=== PATIENT | male | born 1950 | race Caucasian/White ===

== ENCOUNTER 2022-11-08 17:28 | Emergency (ER) | payer OTHER ==
[~2022-11-08] VITALS: Ht 177.8 cm; Wt 93.4 kg
--- NOTE | 2022-11-08 18:58 | ED GU-Male ---
General Chief Complaint: - Reproductive Stated Complaint: CATHETER PAIN - LEAKING Nursing Triage Note: PT AMB TO TRIAGE WITH COMPLAINT OF LOWER ABD PAIN, AND CATHETER HAS BEEN LEAKING. PT HAS HAD INDWELLING CATHETER FOR MONTHS. STATES RECENTLY HAD IT CHANGED. HAS BEEN ON 3 ROUNDS OF ANTIBIOTICS FOR UTI. Source: patient (LIMITED HISTORIAN), spouse History of Present Illness Date Seen by Provider: Nov 08, 2022 Time Seen by Provider: 18:40 Initial Comments PT ARRIVES VIA POV WITH PT HAS HAD INDWELLING MARISCAL CATHETER FOR THE LAST 6 MONTHS--PT STATES FOR PROSTATE PROBLEMS, DENIES HISTORY OF PROSTATE CANCER OR ANY PROSTATE SURGERY STATES HE HAS BEEN FIGHTING UTI'S FOR THE LAST 6 MONTHS, HAS BEEN TREATED 3 TIMES FOR UTI'S, LAST TIME WAS ABOUT 3 WEEKS AGO, WITH UNKNOWN ANTIBIOTIC. STATES CULTURES HAVE GROWN E.COLI. STATES HE IS FINE AT NIGHT, AND DOES NOT HAVE ANY PAIN AND CATHETER WORKS FINE AT NIGHT DURING THE DAY, HE HAS CONSTANT PAIN IN HIS GROIN/GENITAL AREA AND HAS CONSTANT BURNING, AND HAS URGENCY ALL THE TIME AND LEAKS URINE ALL THE TIME. THESE SYMPTOMS HAVE BEEN ONGOING FOR THE LAST 6 MONTHS. HE STATES THIS CURRENT CATHETER HAS BEEN IN PLACE FOR AT LEAST A MONTH HE HAS SEEN A UROLOGIST ONCE, ABOUT 5 MONTHS AGO HE STATES HE HAS NOT SEEN ANY DR. FOR SEVERAL MONTHS. PT AND JUST MOVED HERE 11/05/22 FROM [place], [place] HE HAS BEEN IN A "FACILITY" FOR THE LAST 5-6 MONTHS, AND MOVED HIM OUT ON AND MOVED HERE HE REPORTEDLY BROKE HIS LEG ( LEFT DISTAL FIBULA--NO SURGERY) , AND ALSO WAS HAVING HALLUCINATIONS FROM THE UTI AND THIS PROMPTED ADMIT TO A "FACILITY" HE HAD BEEN GETTING ALL MEDICAL CARE THROUGH [facility] IN [place], [place]. PT STATES HE HAS NOT MADE ANY PRIOR ARRANGEMENTS TO ESTABLISH WITH A LOCAL DRPadmini HERE OR WITH ANY [facility] IN THE AREA--PRIOR TO MOVING HERE LATER STATES THAT HE HAS AN APPOINTMENT WITH SOMEONE SOMEWHERE IN [place] ON November-NOT SURE WHAT KIND OF DRPadmini THE APPOINTMENT IS WITH. PCP: [facility] [place] Allergies and Home Medications Allergies Coded Allergies: ceftriaxone (Verified Allergy, Unknown, 11/08/22) codeine (Verified Allergy, Unknown, 11/08/22) Patient Home Medication List Home Medication List Reviewed: Yes Nitrofurantoin Monohyd/M-Cryst (Macrobid 100 mg Capsule) 100 Mg Capsule, 1 TAB PO BID Prescribed by: DESIRE CASTELLANOS on 11/08/222047 Phenazopyridine HCl (Pyridium) 200 Mg Tablet, 1 TAB PO TID Prescribed by: DESIRE CASTELLANOS on 11/08/222047 Tamsulosin HCl (Flomax) 0.4 Mg Cap, 0.4 MG PO DAILY Prescribed by: DESIRE CASTELLANOS on 11/08/222047 Review of Systems Review of Systems Constitutional: no symptoms reported; No fever Respiratory: no symptoms reported Cardiovascular: no symptoms reported Gastrointestinal: abdominal pain (PAIN OVER BLADDER) Genitourinary: see HPI Psychiatric/Neurological: Anxiety Past Viwoimw-Qkgwwe-Ypbtcs Hx Patient Social History Tobacco Use?: Yes (QUIT AGE 17) Smoking Status: Former Smoker Use of E-Cig and/or Vaping dev: No Substance use?: No Alcohol Use?: Yes (QUIT AGE 17) Pt feels they are or have been: No Seasonal Allergies Seasonal Allergies: Yes Past Medical History Surgeries: Yes Cardiac, Coronary Stent, Defibrillator, Orthopedic, Pacemaker Respiratory: Yes COPD Cardiac: Yes ([place] WITH STENT X 1; PACEMAKER/DEFIBRILLATOR; CHF) Atrial Fibrillation, Cardiomyopathy, Chronic Edema/Swelling, Coronary Artery Disease, Heart Attack, High Cholesterol, Hypertension Neurological: Yes Neuropathy, Parkinson's Disease Genitourinary: Yes (INDWELLING MARISCAL X 6 MONTHS, PER PT ON 11/08/22) Prostate Problems, UTI-Chronic Gastrointestinal: Yes Gastroesophageal Reflux, Liver Disease/Jaundice, Chronic Constipation Musculoskeletal: Yes (S/P BACK SURGERY;LEFT DISTAL FIBULA FX 2021--NO SURGERY) Arthritis, Chronic Back Pain, Fractures Endocrine: Yes (OBESITY) Diabetes, Non-Insulin dep HEENT: No Cancer: No Psychosocial: Yes Anxiety, Depression Integumentary: No Blood Disorders: No Family Medical History SOCIAL HISTORY: -SMOKED TEEN, QUIT AGE 17 -ETOH USE TEEN, QUIT AGE 17 -DENIES DRUG USE PAST SURGICAL HISTORY: -BACK SURGERY X 1 -CARDIAC CATH WITH STENT X 1 -PACEMAKER/DEFIBRILLATOR Physical Exam Vital Signs Vital Signs - First Documented 11/08/22 17:37 Temp 36.8 Pulse 70 Resp 16 B/P (MAP) 154/73 (100) Pulse Ox 96 O2 Delivery Room Air Capillary Refill : Less Than 3 Seconds Height, Weight, BMI Height: '" Weight: lbs. oz. kg; 29.00 BMI Method: General Appearance: WD/WN, no apparent distress, obese, other (ANXIOUS, CONSTANT MOVEMENTS OF BODY, AND ESPECIALLY OF FEET) Respiratory: normal breath sounds, no respiratory distress, no accessory muscle use Gastrointestinal: soft, tenderness (MILD SUPRAPUBIC TENDERNESS) Male: No erythema, No inguinal tenderness, No testicular tenderness; other (PENIS IS RETRACTED, BUT IS OTHERWISE NORMALIN APPEARANCE. MEATUS IS NORMAL. ) Extremities: non-tender, normal inspection, no pedal edema, no calf tenderness, normal capillary refill Neurologic/Psychiatric: no motor/sensory deficits, alert, oriented x 3, other (ANXIOUS.; RESTING TREMORS OF HANDS AND FEET. ) Skin: normal color, warm/dry; No rash Progress/Results/Core Measures Suspected Sepsis SIRS Temperature: Pulse: 70 Respiratory Rate: 16 Laboratory Tests 11/08/22 20:00: White Blood Count 13.3H Blood Pressure 154 /73 Mean: 100 Laboratory Tests 11/08/22 20:00: Creatinine 0.85, INR Comment 1.3, Platelet Count 295, Total Bilirubin 0.4 Results/Orders Lab Results Laboratory Tests Test 11/08/22 19:40 11/08/22 20:00 Range/Units Urine Color BROWN H Urine Clarity CLOUDY Urine pH 6.5 5-9 Urine Specific [place] >=1.030 1.016-1.022 Urine Protein 3+ H NEGATIVE Urine Glucose (UA) NEGATIVE NEGATIVE Urine Ketones TRACE H NEGATIVE Urine Nitrite POSITIVE H NEGATIVE Urine Bilirubin 2+ H NEGATIVE Urine Urobilinogen 2.0 < = 1.0 MG/DL Urine Leukocyte Esterase 2+ H NEGATIVE Urine RBC (Auto) 3+ H NEGATIVE Urine RBC TNTC H /HPF Urine WBC TNTC H /HPF Urine Squamous Epithelial Cells NONE /HPF Urine Crystals NONE /LPF Urine Bacteria LARGE H /HPF Urine Casts NONE /LPF Urine Mucus NEGATIVE /LPF Urine Culture Indicated YES White Blood Count 13.3 H 4.3-11.0 10^3/uL Red Blood Count 5.56 H 4.30-5.52 10^6/uL Hemoglobin 15.2 13.3-17.7 g/dL Hematocrit 48 40-54 % Mean Corpuscular Volume 86 80-99 fL Mean Corpuscular Hemoglobin 27 25-34 pg Mean Corpuscular Hemoglobin Concent 32 32-36 g/dL Red Cell Distribution Width 14.2 10.0-14.5 % Platelet Count 295 130-400 10^3/uL Mean Platelet Volume 9.2 9.0-12.2 fL Immature Granulocyte % (Auto) 0 % Neutrophils (%) (Auto) 67 42-75 % Lymphocytes (%) (Auto) 23 12-44 % Monocytes (%) (Auto) 8 0-12 % Eosinophils (%) (Auto) 1 0-10 % Basophils (%) (Auto) 1 0-10 % Neutrophils # (Auto) 8.9 H 1.8-7.8 10^3/uL Lymphocytes # (Auto) 3.1 1.0-4.0 10^3/uL Monocytes # (Auto) 1.1 H 0.0-1.0 10^3/uL Eosinophils # (Auto) 0.2 0.0-0.3 10^3/uL Basophils # (Auto) 0.1 0.0-0.1 10^3/uL Immature Granulocyte # (Auto) 0.1 0.0-0.1 10^3/uL Prothrombin Time 17.0 H 12.2-14.7 SEC INR Comment 1.3 0.8-1.4 Activated Partial Thromboplast Time 39 H 24-35 SEC Sodium Level 139 135-145 MMOL/L Potassium Level 4.6 3.6-5.0 MMOL/L Chloride Level 105 98-107 MMOL/L Carbon Dioxide Level 22 21-32 MMOL/L Anion Gap 12 5-14 MMOL/L Blood Urea Nitrogen 20 H 7-18 MG/DL Creatinine 0.85 0.60-1.30 MG/DL Estimat Glomerular Filtration Rate 91 BUN/Creatinine Ratio 24 Glucose Level 94 70-105 MG/DL Calcium Level 10.5 H 8.5-10.1 MG/DL Corrected Calcium 10.3 H 8.5-10.1 MG/DL Total Bilirubin 0.4 0.1-1.0 MG/DL Aspartate Amino Transf (AST/SGOT) 14 5-34 U/L Alanine Aminotransferase (ALT/SGPT) 8 0-55 U/L Alkaline Phosphatase 78 40-136 U/L B-Type Natriuretic Peptide 87.4 <100.0 PG/ML Total Protein 7.8 6.4-8.2 GM/DL Albumin 4.3 3.2-4.5 GM/DL Digoxin Level < 0.30 L 0.80-2.00 NG/ML My Orders Orders - DESIRE CASTELLANOS DO Ed Iv/Invasive Line Start (11/08/22 18:49) Catheter(Urinary) Insert & Ass 03,15 (11/08/22 18:49) Monitor-Rhythm Ecg Trace Only (11/08/22 18:49) Bnp [place] (11/08/22 18:49) Cbc With Automated Diff (11/08/22 18:49) Comprehensive Metabolic Panel (11/08/22 18:49) Protime With Inr (11/08/22 18:49) Partial Thromboplastin Time (11/08/22 18:49) Ua Culture If Indicated (11/08/22 18:49) Lidocaine 2% (Urojet) (Xylocaine Urojet) (11/08/22 19:00) Digoxin (11/08/22 18:51) Urine Culture (11/08/22 19:40) Nitrofurantoin Capsule,Macro (Macrobid C (11/08/22 21:00) Phenazopyridine Tablet (Pyridium Tablet) (11/08/22 21:00) Tamsulosin Capsule (Flomax Capsule) (11/08/22 21:00) Medications Given in ED Current Medications Medications Dose Ordered Sig/Esdras Route Start Time Stop Time Status Last Admin Dose Admin Lidocaine HCl 10 ml ONCE ONCE TOP 11/08/22 19:00 11/08/22 19:01 DC 11/08/22 19:30 10 ML Nitrofurantoin Macrocrystals 100 mg ONCE ONCE PO 11/08/22 21:00 11/08/22 21:01 DC 11/08/22 21:10 100 MG Phenazopyridine HCl 200 mg ONCE ONCE PO 11/08/22 21:00 11/08/22 21:01 DC 11/08/22 21:10 200 MG Vital Signs/I&O 11/08/22 11/08/22 17:37 21:10 Temp 36.8 36.8 Pulse 70 68 Resp 16 16 B/P (MAP) 154/73 (100) 169/91 Pulse Ox 96 97 O2 Delivery Room Air Room Air Capillary Refill : Less Than 3 Seconds Blood Pressure Mean: 100 Progress Note : Progress Note CURRENT MARISCAL CATHETER APPEARS TO BE DRAINING NORMALLY WITH VERY DARK, CLOUDY URINE, BUT PT IS HAVING SOME LEAKAGE AROUND IT CONSISTENT WITH URGE TO URINATE--? BLADDER SPASMS ? MARISCAL CATHETER REMOVED AND REPLACED, WITH RETURN OF VERY DARK, CLOUDY URINE. NO LEAKAGE NOTED. REVIEWED TEST RESULTS, NEED FOR FOLLOW UP AND RETURN PRECAUTIONS DISCUSSED WITH PT AND UNEVENTFUL ER STAY GIVEN MACROBID, FLOMAX AND PYRIDIUM HERE LIST OF LOCAL PHYSICIANS SENT HOME WITH PT. Departure Impression Primary Impression: UTI (urinary tract infection) Additional Impressions: Indwelling catheter replaced Chronic indwelling Mariscal catheter Disposition: HOME, SELF-CARE Condition: Stable Departure-Patient Inst. Decision time for Depature: 20:47 Referrals: NO,LOCAL PHYSICIAN (PCP/Family) Primary Care Physician Patient Instructions: How to Care for Your Mariscal Catheter, Male, Urinary Tract Infection, Adult (DC) Add. Discharge Instructions: CONTINUE YOUR REGULAR MEDICATIONS PRESCRIBED INCREASE YOUR FLUID INTAKE ESTABLISH WITH LOCAL DR OF CHOICE SOON POSSIBLE--CALL IN THE MORNING TO MAKE AN APPOINTMENT. LIST OF LOCAL DR'S SENT HOME WITH YOU. THERE ARE SEVERAL [facility] CLIN[facility] IN THE SURROUNDING AREA, AND YOU MAY ALSO ESTABLISH WITH ANY OF THEM, [facility]. All discharge instructions reviewed with patient and/or family. Voiced understanding. Scripts Tamsulosin HCl (Flomax) 0.4 Mg Cap 0.4 MG PO DAILY, #15 CAP Prov: DESIRE CASTELLANOS DO 11/08/22 Phenazopyridine HCl (Pyridium) 200 Mg Tablet 1 TAB PO TID, #15 TAB Prov: DESIRE CASTELLANOS DO 11/08/22 Nitrofurantoin Monohyd/M-Cryst (Macrobid 100 mg Capsule) 100 Mg Capsule 1 TAB PO BID, #20 CAP Prov: DESIRE CASTELLANOS DO 11/08/22 Work/School Note: Local Medical Staff Listing DESIRE CASTELLANOS DO Nov 08, 2022 18:58
[2022-11-08] MEDS ORDERED: LIDOCAINE UROJET 2% GEL 10 ML PKG TOP ONE (19:00)
[2022-11-08 19:53] LABS: BILIRUBIN,URINE 2+ (NEGATIVE); CLARITY,URINE CLOUDY; COLOR,URINE BROWN; GLUCOSE, URINE (UA) NEGATIVE (NEGATIVE); KETONES,URINE TRACE (NEGATIVE); LEUKOCYTE ESTERASE ,URINE 2+ (NEGATIVE); NITRITE,URINE POSITIVE (NEGATIVE); PH,URINE 6.5 (5-9); PROTEIN,URINE 3+ (NEGATIVE)
[2022-11-08 20:11] LABS: BASOPHILS # (AUTO) 0.1 10^3/uL (0.0-0.1); BASOPHILS % (AUTO) 1 % (0-10); EOSINOPHILS # (AUTO) 0.2 10^3/uL (0.0-0.3); EOSINOPHILS % (AUTO) 1 % (0-10); HEMATOCRIT 48 % (40-54); HEMOGLOBIN 15.2 g/dL (13.3-17.7); LYMPHOCYTES # (AUTO) 3.1 10^3/uL (1.0-4.0); LYMPHOCYTES % (AUTO) 23 % (12-44); MEAN CORPUSCULAR HEMOGLOBIN 27 pg (25-34); MEAN CORPUSCULAR HGB CONC 32 g/dL (32-36); MEAN CORPUSCULAR VOLUME 86 fL (80-99); MEAN PLATELET VOLUME 9.2 fL (9.0-12.2); MONOCYTES # (AUTO) 1.1 10^3/uL (0.0-1.0); MONOCYTES % (AUTO) 8 % (0-12); NEUTROPHILS # (AUTO) 8.9 10^3/uL (1.8-7.8); NEUTROPHILS % (AUTO) 67 % (42-75); PLATELET COUNT 295 10^3/uL (130-400); WHITE BLOOD COUNT 13.3 10^3/uL (4.3-11.0)
[2022-11-08 20:25] LABS: BACTERIA,URINE LARGE /HPF; RBC,URINE TNTC /HPF; WBC,URINE TNTC /HPF
[2022-11-08 20:40] LABS: ALANINE AMINOTRANSFERASE 8 U/L (0-55); ALBUMIN 4.3 GM/DL (3.2-4.5); ALKALINE PHOSPHATASE 78 U/L (40-136); BILIRUBIN,TOTAL 0.4 MG/DL (0.1-1.0); BUN/CREATININE RATIO 24; CALCIUM 10.5 MG/DL (8.5-10.1); CARBON DIOXIDE 22 MMOL/L (21-32); CHLORIDE 105 MMOL/L (98-107); CREATININE SERUM 0.85 MG/DL (0.60-1.30); GFR ESTIMATED 91; GLUCOSE 94 MG/DL (70-105); POTASSIUM 4.6 MMOL/L (3.6-5.0); SODIUM 139 MMOL/L (135-145); TOTAL PROTEIN 7.8 GM/DL (6.4-8.2)
[2022-11-08 20:46] LABS: INR 1.3 (0.8-1.4)
[2022-11-08] MEDS ORDERED: PHEN-640 PO (20:48)
[2022-11-08] MEDS ORDERED: NITR-65 PO (20:48)
[2022-11-08] MEDS ORDERED: TMSL.4C PO (20:48)
[2022-11-08] MEDS ORDERED: TAMSULOSIN 0.4 MG (FLOMAX) CAP PO SCH (21:00)
[2022-11-08] MEDS ORDERED: NITROFURANTOIN 100 MG (MACROBID) CAPSULE PO ONE (21:00)
[2022-11-08] MEDS ORDERED: PHENAZOPYRIDINE 100 MG (PYRIDIUM) TABLET PO ONE (21:00)
[2022-11-08 21:10] VITALS: BP 169/91
== END 2022-11-08 21:14 | disposition home or self-care (01) ==
LOC: ER 17:31
DX: N39.0 Urinary tract infection, site not specified (principal); T83.038A Leakage of other urinary catheter, initial encounter; E66.9 Obesity, unspecified; Z87.891 Personal history of nicotine dependence; Z68.29 Body mass index [BMI] 29.0-29.9, adult; Z88.1 Allergy status to other antibiotic agents
CPT/HCPCS: 36415; 51702; 80053; 80162; 81000; 83880; 85025; 85610; 85730; 87077; 87088; 87186; 93041

== ENCOUNTER 2022-12-24 11:09 | Emergency (ER) | payer OTHER ==
[~2022-12-24] VITALS: Ht 177.8 cm; Wt 100.2 kg
[~2022-12-24 11:09] MED LIST: NITR-65 PO; PHEN-640 PO; TMSL.4C PO
--- NOTE | 2022-12-24 11:43 | ED GU-Male ---
General Stated Complaint: UTI, CONFUSION Source: patient, family Exam Limitations: no limitations History of Present Illness Date Seen by Provider: Dec 24, 2022 Time Seen by Provider: 11:31 Initial Comments 72-year-old male presents with concerns for UTI. He has a chronic Mariscal catheter due to urinary retention. Family states that whenever he gets UTI he has a lot of head movement, confusion, and he blurts things out randomly. He denies abdominal pain, but he is tender to palpation in the lower quadrants. Denies fevers, chest pain, nausea, and vomiting. Family states he has a home health nurse who comes and flushes his catheter twice a week. He is also complaining of a sore throat. Reports cough, states it could be related to his COPD. Reports some shortness of air, but states this is normal. Allergies and Home Medications Allergies Coded Allergies: ceftriaxone (Verified Allergy, Unknown, 11/08/22) codeine (Verified Allergy, Unknown, 11/08/22) Patient Home Medication List Home Medication List Reviewed: Yes Nitrofurantoin Macrocrystal (Nitrofurantoin) 100 Mg Capsule, 100 MG PO BID Prescribed by: Martha Vo on 12/24/22 1257 Nitrofurantoin Monohyd/M-Cryst (Macrobid 100 mg Capsule) 100 Mg Capsule, 1 TAB PO BID Prescribed by: DESIRE CASTELLANOS on 11/08/222047 Phenazopyridine HCl (Pyridium) 200 Mg Tablet, 1 TAB PO TID Prescribed by: DESIRE CASTELLANOS on 11/08/222047 Tamsulosin HCl (Flomax) 0.4 Mg Cap, 0.4 MG PO DAILY Prescribed by: DESIRE CASTELLANOS on 11/08/222047 Review of Systems Review of Systems Constitutional: see HPI Past Jjuaioi-Ylmefg-Gbpxly Hx Seasonal Allergies Seasonal Allergies: Yes Past Medical History Surgeries: Yes Cardiac, Coronary Stent, Defibrillator, Orthopedic, Pacemaker Respiratory: Yes COPD Cardiac: Yes ([place] WITH STENT X 1; PACEMAKER/DEFIBRILLATOR; CHF) Atrial Fibrillation, Cardiomyopathy, Chronic Edema/Swelling, Coronary Artery Disease, Heart Attack, High Cholesterol, Hypertension Neurological: Yes Neuropathy, Parkinson's Disease Genitourinary: Yes (INDWELLING MARISCAL X 6 MONTHS, PER PT ON 11/08/22) Prostate Problems, UTI-Chronic Gastrointestinal: Yes Gastroesophageal Reflux, Liver Disease/Jaundice, Chronic Constipation Musculoskeletal: Yes (S/P BACK SURGERY;LEFT DISTAL FIBULA FX 2021--NO SURGERY) Arthritis, Chronic Back Pain, Fractures Endocrine: Yes (OBESITY) Diabetes, Non-Insulin dep HEENT: No Cancer: No Psychosocial: Yes Anxiety, Depression Integumentary: No Blood Disorders: No Family Medical History SOCIAL HISTORY: -SMOKED TEEN, QUIT AGE 17 -ETOH USE TEEN, QUIT AGE 17 -DENIES DRUG USE PAST SURGICAL HISTORY: -BACK SURGERY X 1 -CARDIAC CATH WITH STENT X 1 -PACEMAKER/DEFIBRILLATOR Physical Exam Vital Signs Vital Signs - First Documented 12/24/22 11:15 Temp 36.2 Pulse 70 Resp 17 B/P (MAP) 136/50 (78) O2 Delivery Room Air Capillary Refill : Height, Weight, BMI Height: '" Weight: lbs. oz. kg; 29.00 BMI Method: General Appearance: WD/WN, no apparent distress HEENT: pharynx normal; No pharyngeal erythema, No tonsillar exudate Neck: supple, normal inspection Cardiovascular: regular rate, rhythm, no edema, no gallop, no JVD, no murmur Respiratory: lungs clear, normal breath sounds, no respiratory distress, no accessory muscle use Gastrointestinal: normal bowel sounds, soft, tenderness (Bilateral lower quadrants) Back: normal inspection Extremities: normal range of motion, normal inspection Neurologic/Psychiatric: alert, normal mood/affect Skin: normal color, warm/dry Progress/Results/Core Measures Suspected Sepsis SIRS Temperature: Pulse: Respiratory Rate: Laboratory Tests 12/24/22 11:35: White Blood Count 11.0 Blood Pressure / Mean: Laboratory Tests 12/24/22 11:35: Creatinine 0.77, Platelet Count 271, Total Bilirubin 0.8 Results/Orders Lab Results Laboratory Tests Test 12/24/22 11:35 12/24/22 11:51 Range/Units White Blood Count 11.0 4.3-11.0 10^3/uL Red Blood Count 5.01 4.30-5.52 10^6/uL Hemoglobin 13.2 L 13.3-17.7 g/dL Hematocrit 42 40-54 % Mean Corpuscular Volume 84 80-99 fL Mean Corpuscular Hemoglobin 26 25-34 pg Mean Corpuscular Hemoglobin Concent 31 L 32-36 g/dL Red Cell Distribution Width 15.8 H 10.0-14.5 % Platelet Count 271 130-400 10^3/uL Mean Platelet Volume 9.4 9.0-12.2 fL Immature Granulocyte % (Auto) 0 % Neutrophils (%) (Auto) 78 H 42-75 % Lymphocytes (%) (Auto) 11 L 12-44 % Monocytes (%) (Auto) 9 0-12 % Eosinophils (%) (Auto) 1 0-10 % Basophils (%) (Auto) 1 0-10 % Neutrophils # (Auto) 8.5 H 1.8-7.8 10^3/uL Lymphocytes # (Auto) 1.2 1.0-4.0 10^3/uL Monocytes # (Auto) 1.0 0.0-1.0 10^3/uL Eosinophils # (Auto) 0.1 0.0-0.3 10^3/uL Basophils # (Auto) 0.1 0.0-0.1 10^3/uL Immature Granulocyte # (Auto) 0.0 0.0-0.1 10^3/uL Urine Color MICHAEL H Urine Clarity CLOUDY Urine pH 6.0 5-9 Urine Specific [place] 1.015 L 1.016-1.022 Urine Protein 2+ H NEGATIVE Urine Glucose (UA) TRACE H NEGATIVE Urine Ketones TRACE H NEGATIVE Urine Nitrite NEGATIVE NEGATIVE Urine Bilirubin NEGATIVE NEGATIVE Urine Urobilinogen 1.0 < = 1.0 MG/DL Urine Leukocyte Esterase 3+ H NEGATIVE Urine RBC (Auto) 3+ H NEGATIVE Urine RBC >100 H /HPF Urine WBC 50-100 H /HPF Urine Crystals NONE /LPF Urine Bacteria MODERATE H /HPF Urine Casts NONE /LPF Urine Mucus NEGATIVE /LPF Urine Culture Indicated YES Sodium Level 139 135-145 MMOL/L Potassium Level 3.9 3.6-5.0 MMOL/L Chloride Level 103 98-107 MMOL/L Carbon Dioxide Level 22 21-32 MMOL/L Anion Gap 14 5-14 MMOL/L Blood Urea Nitrogen 12 7-18 MG/DL Creatinine 0.77 0.60-1.30 MG/DL Estimat Glomerular Filtration Rate 94 BUN/Creatinine Ratio 16 Glucose Level 120 H 70-105 MG/DL Calcium Level 9.6 8.5-10.1 MG/DL Corrected Calcium 9.7 8.5-10.1 MG/DL Total Bilirubin 0.8 0.1-1.0 MG/DL Aspartate Amino Transf (AST/SGOT) 12 5-34 U/L Alanine Aminotransferase (ALT/SGPT) < 6 0-55 U/L Alkaline Phosphatase 68 40-136 U/L Total Protein 7.0 6.4-8.2 GM/DL Albumin 3.9 3.2-4.5 GM/DL Influenza Type A (RT-PCR) Not Detected Not Detecte Influenza Type B (RT-PCR) Not Detected Not Detecte SARS-CoV-2 RNA (RT-PCR) Not Detected Not Detecte Group A Streptococcus Screen NEGATIVE NEGATIVE My Orders Orders - MARTHA VO APRN Ua Culture If Indicated (12/24/22 11:30) Cbc With Automated Diff (12/24/22 11:37) Comprehensive Metabolic Panel (12/24/22 11:37) Chest 1 View, Ap/Pa Only (12/24/22 11:43) Covid 19 Inhouse Test (12/24/22 11:44) Influenza A And B By Pcr (12/24/22 11:44) Rapid Strep A Screen (12/24/22 11:44) Urine Culture (12/24/22 11:35) Nitrofurantoin Capsule,Macro (Macrobid C (12/24/22 12:45) Medications Given in ED Current Medications Medications Dose Ordered Sig/Esdras Route Start Time Stop Time Status Last Admin Dose Admin Nitrofurantoin Macrocrystals 100 mg ONCE ONCE PO 12/24/22 12:45 12/24/22 12:46 DC 12/24/22 13:12 100 MG Vital Signs/I&O 12/24/22 11:15 Temp 36.2 Pulse 70 Resp 17 B/P (MAP) 136/50 (78) O2 Delivery Room Air Capillary Refill : Progress Note #1: Time: 11:42 Progress Note Patient seen and evaluated, resting comfortably in bed, no acute distress. Based on exam and symptoms, concern for UTI, COVID/flu, COPD, strep throat. Work-up initially included CBC, CMP, UA with culture, COVID and flu swabs, strep swab, and chest x-ray. Progress Note #2: Time: 12:47 Progress Note Labs reviewed. CBC shows normal WBC 11.0, slightly decreased hemoglobin 13.2, slightly increased neutrophil % 78. CMP grossly normal, glucose slightly elevated at 120, kidney function normal, creatinine 0.77, GFR 95, BUN 12. UA shows 2+ protein, trace glucose, trace ketones, 3+ leukocytes, 3+ RBC, 50-100 WBC, moderate bacteria. Previously was susceptible to Macrobid, will prescribe Macrobid, patient has normal kidney function. Waiting for chest x-ray result. Progress Note #3: Time: 12:55 Progress Note Chest x-ray reviewed, no acute cardiopulmonary processes. Results discussed with patient and family. Will discharge with oral antibiotic. Patient and family agree with discharge plan. Discharge instructions return precautions provided. asked if he could be placed on long-term antibiotics that he takes daily to prevent infections. and patient instructed to follow-up with primary care provider regarding this. Departure Impression Primary Impression: Urinary tract infection Disposition: 01 HOME, SELF-CARE Condition: Stable Departure-Patient Inst. Referrals: NO,LOCAL PHYSICIAN (PCP/Family) Primary Care Physician Patient Instructions: Urinary Tract Infection, Adult (DC) Add. Discharge Instructions: Complete full course of antibiotic, even if you begin to feel better. Return for fevers greater than 100.4, worsening pain, vomiting, lower back/flank pain, inability to urinate, or any other new, concerning, or worsening symptoms. Follow-up with primary care provider. Scripts Nitrofurantoin Macrocrystal (Nitrofurantoin) 100 Mg Capsule 100 MG PO BID for 10 Days, #20 CAP 0 Refills Prov: MARTHA VO APRN 12/24/22 MARTHA VO APRN Dec 24, 2022 11:43
[2022-12-24 11:52] LABS: BASOPHILS # (AUTO) 0.1 10^3/uL (0.0-0.1); BASOPHILS % (AUTO) 1 % (0-10); EOSINOPHILS # (AUTO) 0.1 10^3/uL (0.0-0.3); EOSINOPHILS % (AUTO) 1 % (0-10); HEMATOCRIT 42 % (40-54); HEMOGLOBIN 13.2 g/dL (13.3-17.7); LYMPHOCYTES # (AUTO) 1.2 10^3/uL (1.0-4.0); LYMPHOCYTES % (AUTO) 11 % (12-44); MEAN CORPUSCULAR HEMOGLOBIN 26 pg (25-34); MEAN CORPUSCULAR HGB CONC 31 g/dL (32-36); MEAN CORPUSCULAR VOLUME 84 fL (80-99); MEAN PLATELET VOLUME 9.4 fL (9.0-12.2); MONOCYTES % (AUTO) 9 % (0-12); NEUTROPHILS # (AUTO) 8.5 10^3/uL (1.8-7.8); NEUTROPHILS % (AUTO) 78 % (42-75); PLATELET COUNT 271 10^3/uL (130-400)
[2022-12-24 11:53] LABS: BILIRUBIN,URINE NEGATIVE (NEGATIVE); CLARITY,URINE CLOUDY; COLOR,URINE AMBER; GLUCOSE, URINE (UA) TRACE (NEGATIVE); KETONES,URINE TRACE (NEGATIVE); LEUKOCYTE ESTERASE ,URINE 3+ (NEGATIVE); NITRITE,URINE NEGATIVE (NEGATIVE); PROTEIN,URINE 2+ (NEGATIVE)
[2022-12-24 12:00] LABS: BACTERIA,URINE MODERATE /HPF; RBC,URINE >100 /HPF; WBC,URINE 50-100 /HPF
[2022-12-24 12:02] LABS: ALBUMIN 3.9 GM/DL (3.2-4.5); CHLORIDE 103 MMOL/L (98-107); POTASSIUM 3.9 MMOL/L (3.6-5.0); SODIUM 139 MMOL/L (135-145)
[2022-12-24 12:03] LABS: CALCIUM 9.6 MG/DL (8.5-10.1)
[2022-12-24 12:04] LABS: GLUCOSE 120 MG/DL (70-105)
[2022-12-24 12:05] LABS: CARBON DIOXIDE 22 MMOL/L (21-32)
[2022-12-24 12:06] LABS: BILIRUBIN,TOTAL 0.8 MG/DL (0.1-1.0)
[2022-12-24 12:07] LABS: ALKALINE PHOSPHATASE 68 U/L (40-136)
[2022-12-24 12:08] LABS: CREATININE SERUM 0.77 MG/DL (0.60-1.30); GFR ESTIMATED 94
[2022-12-24 12:09] LABS: BUN/CREATININE RATIO 16
[2022-12-24 12:11] LABS: ALANINE AMINOTRANSFERASE < 6 U/L (0-55)
[2022-12-24] MEDS ORDERED: NITROFURANTOIN 100 MG (MACROBID) CAPSULE PO ONE (12:45)
[2022-12-24] MEDS ORDERED: NITR100C PO (12:57)
[2022-12-24 13:13] VITALS: BP 126/70
--- NOTE | 2022-12-25 13:57 | Diagnostic Imaging Report ---
EXAMINATION: Chest radiograph TECHNIQUE: Portable upright view of the chest obtained. HISTORY: cough COMPARISON: None available. FINDINGS: Low lung volume. No airspace opacity. Left pectoral AICD. Cardiac silhouette and pulmonary vascularity are within normal limits. No airspace consolidation. No pleural effusion or pneumothorax. No acute osseous abnormality. IMPRESSION: No acute chest findings. Dictated by: Dictated on workstation # [id number]
== END 2022-12-24 13:13 | disposition home or self-care (01) ==
LOC: EDUNIT# 11:09 → ER 11:11
DX: N39.0 Urinary tract infection, site not specified (principal); J44.9 Chronic obstructive pulmonary disease, unspecified; E66.9 Obesity, unspecified; Z87.891 Personal history of nicotine dependence; Z68.29 Body mass index [BMI] 29.0-29.9, adult; Z20.822 Contact with and (suspected) exposure to COVID-19; Z88.1 Allergy status to other antibiotic agents
CPT/HCPCS: 36415; 71045; 80053; 81000; 85025; 87077; 87088; 87186; 87430; 87636

== ENCOUNTER 2022-12-29 16:01 | Emergency (ER) | payer OTHER ==
[~2022-12-29] VITALS: Ht 177.8 cm; Wt 100.0 kg
[~2022-12-29 16:01] MED LIST changes: +NITR100C PO
[2022-12-29 17:08] LABS: CLARITY,URINE TURBID; COLOR,URINE RED; GLUCOSE, URINE (UA) 2+ (NEGATIVE); KETONES,URINE 1+ (NEGATIVE); LEUKOCYTE ESTERASE ,URINE 2+ (NEGATIVE); NITRITE,URINE POSITIVE (NEGATIVE); PH,URINE 6.5 (5-9); PROTEIN,URINE 3+ (NEGATIVE)
[2022-12-29 17:23] LABS: BACTERIA,URINE LARGE /HPF; RBC,URINE TNTC /HPF
[2022-12-29 17:29] LABS: BILIRUBIN,URINE 3+ (NEGATIVE)
--- NOTE | 2022-12-29 17:47 | ED GU-Male ---
General Chief Complaint: - Reproductive Stated Complaint: BLOOD IN URINE Nursing Triage Note: PT TO ROOM VIA W/C WITH C/O BLOOD IN URINE AND BURNING FEEL IN BLADDER SINCE THIS MORNING. PT HAS INDWELLING CATHETHER IN PLACE. PT REPORTS CHRONIC UTIS. Source: patient, old records Exam Limitations: no limitations History of Present Illness Date Seen by Provider: Dec 29, 2022 Time Seen by Provider: 16:02 Initial Comments This 72-year-old gentleman presents to the emergency room with complaints of suprapubic discomfort and gross hematuria noted in his Mariscal catheter tubing and bag. He was seen a couple days ago in this emergency room and diagnosed with urinary tract infection. Catheter was not replaced at that time and has been in place for at least 3 weeks. He has history of recurrent bladder infections. Culture was obtained on his last visit and was reviewed. Based on culture results, Bactrim is being added to his treatment. He is on anticoagulant for history of atrial fibrillation. He has a Mariscal catheter placed for urinary retention. He is seeing a urologist through the [facility]. Allergies and Home Medications Allergies Coded Allergies: ceftriaxone (Verified Allergy, Unknown, 11/08/22) codeine (Verified Allergy, Unknown, 11/08/22) Patient Home Medication List Home Medication List Reviewed: Yes Nitrofurantoin Macrocrystal (Nitrofurantoin) 100 Mg Capsule, 100 MG PO BID Prescribed by: Martha Goldberg on 12/24/22 1257 Nitrofurantoin Monohyd/M-Cryst (Macrobid 100 mg Capsule) 100 Mg Capsule, 1 TAB PO BID Prescribed by: DESIRE CASTELLANOS on 11/08/222047 Phenazopyridine HCl (Pyridium) 200 Mg Tablet, 1 TAB PO TID Prescribed by: DESIRE CASTELLANOS on 11/08/222047 Sulfamethoxazole/Trimethoprim (Bactrim Ds Tablet) 1 Each Tablet, 1 EACH PO BID Prescribed by: LEILANI SALVADOR on 12/29/221748 Tamsulosin HCl (Flomax) 0.4 Mg Cap, 0.4 MG PO DAILY Prescribed by: DESIRE CASTELLANOS on 11/08/222047 Review of Systems Review of Systems Constitutional: no symptoms reported EENTM: no symptoms reported Respiratory: no symptoms reported Cardiovascular: see HPI Gastrointestinal: see HPI Genitourinary: see HPI Musculoskeletal: no symptoms reported Skin: no symptoms reported Psychiatric/Neurological: No Symptoms Reported Endocrine: No Symptoms Reported Hematologic/Lymphatic: See HPI Past Rzvwque-Slsdxe-Juoxwh Hx Patient Social History Tobacco Use?: No Smoking Status: Never a Smoker Smokeless Tobacco Frequency: Never a User Use of E-Cig and/or Vaping dev: No Use of E-Cig and/or Vaping [place]: Never a User Substance use?: No Alcohol Use?: No Pt feels they are or have been: No Seasonal Allergies Seasonal Allergies: Yes Past Medical History Surgeries: Yes Cardiac, Coronary Stent, Defibrillator, Orthopedic, Pacemaker Respiratory: Yes COPD Cardiac: Yes ([place] WITH STENT X 1; PACEMAKER/DEFIBRILLATOR; CHF) Atrial Fibrillation, Cardiomyopathy, Chronic Edema/Swelling, Coronary Artery Disease, Heart Attack, High Cholesterol, Hypertension Neurological: Yes Neuropathy, Parkinson's Disease Genitourinary: Yes (INDWELLING MARISCAL X 6 MONTHS, PER PT ON 11/08/22) Prostate Problems, UTI-Chronic Gastrointestinal: Yes Gastroesophageal Reflux, Liver Disease/Jaundice, Chronic Constipation Musculoskeletal: Yes (S/P BACK SURGERY;LEFT DISTAL FIBULA FX 2021--NO SURGERY) Arthritis, Chronic Back Pain, Fractures Endocrine: Yes (OBESITY) Diabetes, Non-Insulin dep HEENT: No Cancer: No Psychosocial: Yes Anxiety, Depression Integumentary: No Blood Disorders: No Family Medical History SOCIAL HISTORY: -SMOKED TEEN, QUIT AGE 17 -ETOH USE TEEN, QUIT AGE 17 -DENIES DRUG USE PAST SURGICAL HISTORY: -BACK SURGERY X 1 -CARDIAC CATH WITH STENT X 1 -PACEMAKER/DEFIBRILLATOR Physical Exam Vital Signs Vital Signs - First Documented 12/29/22 12/29/22 16:05 18:31 Temp 36.4 Pulse 67 Resp 16 B/P (MAP) 149/94 (112) Pulse Ox 97 O2 Delivery Room Air Capillary Refill : Less Than 3 Seconds Height, Weight, BMI Height: '" Weight: lbs. oz. kg; 31.00 BMI Method: General Appearance: WD/WN, no apparent distress HEENT: normal ENT inspection Neck: normal inspection Cardiovascular: regular rate, rhythm, no murmur Respiratory: lungs clear, normal breath sounds, no respiratory distress Gastrointestinal: soft, tenderness (Suprapubic) Neurologic/Psychiatric: alert, normal mood/affect, oriented x 3 Skin: normal color, warm/dry Progress/Results/Core Measures Suspected Sepsis SIRS Temperature: Pulse: 67 Respiratory Rate: 16 Blood Pressure 149 /94 Mean: 112 Results/Orders Lab Results Laboratory Tests Test 12/29/22 16:41 Range/Units Urine Color RED H Urine Clarity TURBID Urine pH 6.5 5-9 Urine Specific [place] 1.020 1.016-1.022 Urine Protein 3+ H NEGATIVE Urine Glucose (UA) 2+ H NEGATIVE Urine Ketones 1+ H NEGATIVE Urine Nitrite POSITIVE H NEGATIVE Urine Bilirubin 3+ H NEGATIVE Urine Urobilinogen 4.0 < = 1.0 MG/DL Urine Leukocyte Esterase 2+ H NEGATIVE Urine RBC (Auto) 3+ H NEGATIVE Urine RBC TNTC H /HPF Urine WBC 10-25 H /HPF Urine Squamous Epithelial Cells NONE /HPF Urine Crystals NONE /LPF Urine Bacteria LARGE H /HPF Urine Casts NONE /LPF Urine Mucus NEGATIVE /LPF Urine Other /HPF Urine Culture Indicated YES Micro Results Microbiology 12/29/22 Urine Culture - Final, Complete Lactobacillus species Gram Negative Gildardo My Orders Orders - LEILANI REY MD Ua Culture If Indicated (12/29/22 16:02) Urine Culture (12/29/22 16:41) Sulfamethoxazole/Trimet Ds Tab (Bactrim (12/29/22 18:00) Mariscal Cath (12/29/22 17:56) Vital Signs/I&O 12/29/22 12/29/22 16:05 18:31 Temp 36.4 36.3 Pulse 67 69 Resp 16 15 B/P (MAP) 149/94 (112) 146/84 Pulse Ox 97 O2 Delivery Room Air Room Air Capillary Refill : Less Than 3 Seconds Blood Pressure Mean: 112 Progress Note : Progress Note Mariscal catheter was replaced. Patient was started on Bactrim DS based on review of culture results. He was advised to skip his next 2 doses of Eliquis due to the significant active bleeding with gross hematuria. See discharge instructions for further discussion. Departure Impression Primary Impression: UTI (urinary tract infection) Qualified Codes: N39.0 - Urinary tract infection, site not specified; R31.9 - Hematuria, unspecified Additional Impressions: Chronic indwelling Mariscal catheter Anticoagulated Disposition: 01 HOME, SELF-CARE Condition: Improved Departure-Patient Inst. Decision time for Depature: 17:49 Referrals: NO,LOCAL PHYSICIAN (PCP/Family) Primary Care Physician Patient Instructions: How to Care for Your Mariscal Catheter, Male, Urinary Tract Infection, Adult ED Add. Discharge Instructions: Because of your significant bleeding, skip the next 2 doses of Eliquis. Resume Eliquis tomorrow night. Follow-up with your urologist as soon as possible. Please call Sunday morning for further instructions. Complete to the nitrofurantoin antibiotic you were recently prescribed as well as the Bactrim DS you were prescribed from the ER tonight. Follow-up with your primary care provider soon as possible as well. Please drink plenty of clear liquids to help flush the urine through your urinary tract. Empty your catheter often. Try to keep your catheter bag below the level of your bladder. Return to the ER if you have worsening symptoms despite following these instructions. All discharge instructions reviewed with patient and/or family. Voiced understanding. Scripts Sulfamethoxazole/Trimethoprim (Bactrim Ds Tablet) 1 Each Tablet 1 EACH PO BID, #14 TAB Prov: LEILANI REY MD 12/29/22 LEILANI REY MD Dec 29, 2022 17:47
[2022-12-29] MEDS ORDERED: SULF1TAB38 PO (17:49)
[2022-12-29] MEDS ORDERED: TRIM/SULFAMETH 160/800 (SEPTRA DS) TAB PO ONE (18:00)
[2022-12-29 18:31] VITALS: BP 146/84
== END 2022-12-29 18:31 | disposition home or self-care (01) ==
LOC: EDUNIT# 16:01 → ER 16:02
DX: N39.0 Urinary tract infection, site not specified (principal); R31.0 Gross hematuria; Z96.0 Presence of urogenital implants; Z79.01 Long term (current) use of anticoagulants; Z87.891 Personal history of nicotine dependence; Z88.2 Allergy status to sulfonamides
CPT/HCPCS: 51702; 81000; 87088

== ENCOUNTER 2023-02-26 14:13 | Emergency (ER) | payer OTHER ==
[~2023-02-26] VITALS: Ht 177 cm; Wt 104.3 kg
[~2023-02-26 14:13] MED LIST changes: +SULF1TAB38 PO
--- NOTE | 2023-02-26 14:38 | ED GU-Female ---
General Chief Complaint: - Reproductive Stated Complaint: UTI| PAIN Source: patient Exam Limitations: no limitations History of Present Illness Date Seen by Provider: Feb 26, 2023 Time Seen by Provider: 14:36 Initial Comments Patient is a 72-year-old male with a history of BPH who presents ED with burning with his urination. States over the past 9 months he has had on and off urinary tract infections treated with Bactrim. He states he had some increased burning with urination with increased pressure over the past few days. States he has been producing a lot of urine. Does have a indwelling catheter recently switched out 1 week ago. Reports burning sensation down into his testicle. Denies any testicle pain or testicle swelling at this time. Denies fever, chills, back pain, abdominal distention, chest pain, shortness of breath, cough, nausea vomiting, diarrhea. Follows up with urology Dr. Wallace in [place]. Allergies and Home Medications Allergies Coded Allergies: ceftriaxone (Verified Allergy, Unknown, 11/08/22) codeine (Verified Allergy, Unknown, 11/08/22) Patient Home Medication List Home Medication List Reviewed: Yes Nitrofurantoin Macrocrystal (Nitrofurantoin) 100 Mg Capsule, 100 MG PO BID Prescribed by: Marhta Goldberg on 12/24/22 1257 Nitrofurantoin Monohyd/M-Cryst (Macrobid 100 mg Capsule) 100 Mg Capsule, 1 TAB PO BID Prescribed by: DESIRE CASTELLANOS on 11/08/222047 Phenazopyridine HCl (Pyridium) 200 Mg Tablet, 1 TAB PO TID Prescribed by: DESIRE CASTELLANOS on 11/08/222047 Sulfamethoxazole/Trimethoprim (Bactrim Ds Tablet) 1 Each Tablet, 1 EACH PO BID Prescribed by: LEILANI SALVADOR on 12/29/22 1749 Sulfamethoxazole/Trimethoprim (Bactrim Ds Tablet) 1 Each Tablet, 1 EACH PO BID Prescribed by: KYE SHAFER on 02/26/23 153 Tamsulosin HCl (Flomax) 0.4 Mg Cap, 0.4 MG PO DAILY Prescribed by: DESIRE CASTELLANOS on 11/08/222047 Review of Systems Review of Systems Constitutional: No chills, No diaphoresis, No malaise, No weakness EENTM: No ear pain, No blurred vision, No double vision, No hoarseness, No mouth pain, No mouth swelling Respiratory: No cough, No dyspnea on exertion Cardiovascular: No chest pain Gastrointestinal: No abdominal pain, No diarrhea, No nausea, No vomiting Genitourinary: burning, discharge, dysuria, frequency Musculoskeletal: No back pain, No gout Skin: No change in color, No change in hair/nails All Other Systemes Reviewed Negative Unless Noted: Yes Past Oucknfi-Uzgtuo-Ztncjl Hx Seasonal Allergies Seasonal Allergies: Yes Past Medical History Surgeries: Yes Cardiac, Coronary Stent, Defibrillator, Orthopedic, Pacemaker Respiratory: Yes COPD Cardiac: Yes (ME WITH STENT X 1; PACEMAKER/DEFIBRILLATOR; CHF) Atrial Fibrillation, Cardiomyopathy, Chronic Edema/Swelling, Coronary Artery Disease, Heart Attack, High Cholesterol, Hypertension Neurological: Yes Neuropathy, Parkinson's Disease Genitourinary: Yes (INDWELLING MARISCAL X 6 MONTHS, PER PT ON 11/08/22) Prostate Problems, UTI-Chronic Gastrointestinal: Yes Gastroesophageal Reflux, Liver Disease/Jaundice, Chronic Constipation Musculoskeletal: Yes (S/P BACK SURGERY;LEFT DISTAL FIBULA FX 2021--NO SURGERY) Arthritis, Chronic Back Pain, Fractures Endocrine: Yes (OBESITY) Diabetes, Non-Insulin dep HEENT: No Cancer: No Psychosocial: Yes Anxiety, Depression Integumentary: No Blood Disorders: No Family Medical History SOCIAL HISTORY: -SMOKED TEEN, QUIT AGE 17 -ETOH USE TEEN, QUIT AGE 17 -DENIES DRUG USE PAST SURGICAL HISTORY: -BACK SURGERY X 1 -CARDIAC CATH WITH STENT X 1 -PACEMAKER/DEFIBRILLATOR Physical Exam Vital Signs Vital Signs - First Documented 02/26/23 14:34 Temp 36.5 Pulse 68 Resp 18 B/P (MAP) 155/77 (103) Pulse Ox 97 O2 Delivery Room Air Capillary Refill : Height, Weight, BMI Height: '" Weight: lbs. oz. 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, no motor/sensory deficits, alert, normal mood/affect, oriented x 3 Skin: normal color, warm/dry Progress/Results/Core Measures Suspected Sepsis SIRS Temperature: Pulse: Respiratory Rate: Blood Pressure / Mean: Results/Orders Lab Results Laboratory Tests Test 02/26/23 15:06 Range/Units Urine Color YELLOW Urine Clarity CLEAR Urine pH 8.0 5-9 Urine Specific [place] 1.010 L 1.016-1.022 Urine Protein 2+ H NEGATIVE Urine Glucose (UA) TRACE H NEGATIVE Urine Ketones NEGATIVE NEGATIVE Urine Nitrite POSITIVE H NEGATIVE Urine Bilirubin NEGATIVE NEGATIVE Urine Urobilinogen 2.0 < = 1.0 MG/DL Urine Leukocyte Esterase 3+ H NEGATIVE Urine RBC (Auto) 3+ H NEGATIVE Urine RBC 5-10 H /HPF Urine WBC 5-10 H /HPF Urine Squamous Epithelial Cells RARE /HPF Urine Crystals NONE /LPF Urine Amorphous Sediment RARE ADRIEL PHOSPHATE H /LPF Urine Bacteria MODERATE H /HPF Urine Casts NONE /LPF Urine Mucus NEGATIVE /LPF Urine Culture Indicated YES My Orders Orders - FRANCISCO J CASTANON Ua Culture If Indicated (02/26/23 14:28) Urine Culture (02/26/23 15:06) Vital Signs/I&O 02/26/23 14:34 Temp 36.5 Pulse 68 Resp 18 B/P (MAP) 155/77 (103) Pulse Ox 97 O2 Delivery Room Air Capillary Refill : Departure Communication (PCP) History of urinary tract infections. States he had a indwelling catheter placed secondary to enlarged prostate. Patient with suprapubic discomfort and perineal discomfort. Concerning for urinary tract infection versus prostatitis. He is afebrile with stable vital signs. Slightly hypertensive 155/77. Urinalysis positive for nitrites, white blood cells 5-10, +3 leukocytes. Patient recently had a Mariscal catheter replaced 1 week ago. Does not want this replaced at this time. Discussed the risk subsequent sequent catheter associated infection. Patient acknowledges. Discussed starting Bactrim for at least 28 days as would be concern for prostatitis. Secondary to the pain, location and urinary symptoms. Patient has taken Bactrim in the past with improvement. Recommend following up with urology. He states he is on medication for his prostate that he cannot recall. He states he is urinating. His urine did appear cloudy. Discussed getting his catheter removed as soon as possible. If any worsening symptoms such as abdominal pain, fever, chills worsening pain to return back to ED. if decreased urine output to return back to ED Impression Primary Impression: UTI (urinary tract infection) Disposition: 01 HOME, SELF-CARE Condition: Stable Departure-Patient Inst. Decision time for Depature: 15:33 Referrals: BARBARA MCCLURE DO (PCP/Family) Primary Care Physician Patient Instructions: Urinary Tract Infections in Adults Add. Discharge Instructions: Recommend follow-up with urology for further evaluation. If any worsening symptoms such as fever, chills, vomiting or worsening pain to return back to ED. All discharge instructions reviewed with patient and/or family. Voiced understanding. Scripts Sulfamethoxazole/Trimethoprim (Bactrim Ds Tablet) 1 Each Tablet 1 EACH PO BID for 28 Days, #56 TAB Prov: FRANCISCO J CASTANON 02/26/23 FRANCISCO J CASTANON Feb 26, 2023 14:38
[2023-02-26 15:14] LABS: BILIRUBIN,URINE NEGATIVE (NEGATIVE); CLARITY,URINE CLEAR; COLOR,URINE YELLOW; GLUCOSE, URINE (UA) TRACE (NEGATIVE); KETONES,URINE NEGATIVE (NEGATIVE); LEUKOCYTE ESTERASE ,URINE 3+ (NEGATIVE); NITRITE,URINE POSITIVE (NEGATIVE); PROTEIN,URINE 2+ (NEGATIVE)
[2023-02-26 15:30] LABS: AMORPHOUS SEDIMENT,UR RARE AMOR PHOSPHATE /LPF; BACTERIA,URINE MODERATE /HPF; SQUAMOUS EPITHELIAL CELL,UR RARE /HPF
[2023-02-26] MEDS ORDERED: SULF1TAB38 PO (15:34)
[2023-02-26 15:50] VITALS: BP 110/82
== END 2023-02-26 15:50 | disposition home or self-care (01) ==
LOC: EDUNIT# 14:13 → ER 14:15
DX: N39.0 Urinary tract infection, site not specified (principal); I10 Essential (primary) hypertension; E66.9 Obesity, unspecified; Z88.1 Allergy status to other antibiotic agents; Z68.31 Body mass index [BMI] 31.0-31.9, adult; Z87.891 Personal history of nicotine dependence
CPT/HCPCS: 81000; 87077; 87088; 87186; 99282

== ENCOUNTER → 2023-02-28 | Outpatient (CLI) | payer OTHER, MEDICARE | LOC: CARD 09:00 | PROVIDERS: ATTEND Nurse Practitioner Family | DX: I25.5 Ischemic cardiomyopathy (principal); I51.7 Cardiomegaly; I25.10 Atherosclerotic heart disease of native coronary artery without angina pectoris | CPT/HCPCS: 93306 ==

== ENCOUNTER → 2023-03-13 | Outpatient (CLI) | payer OTHER ==
[~2023-03-13] MED LIST changes: +CATHETER FLUSH 10 ML SYR IVP PRN; +REGADENOSON 0.4 MG/5 ML SYR (LEXISCAN) IV ONE
--- NOTE | 2023-03-14 16:55 | STRESS TEST ---
DATE OF SERVICE: 03/13/2023 RESTING AND POST REGADENOSON TECHNETIUM-99M TETROFOSMIN SPECT CT IMAGING ORDERING PHYSICIAN: Dr. Aguayo. Baseline images were carried out after injection of 9.99 mCi of technetium-99m tetrofosmin. This was followed by 0.4 mg regadenoson and 27.1 mCi of technetium-99m tetrofosmin. Stress images were then obtained. The electrocardiogram showed a paced ventricular rhythm throughout the study. Occasionally, [place] QRS complexes were also seen. The electrocardiogram did not change significantly with regadenoson infusion. Review of images at rest and following stress does not indicate any distinct perfusion defects consistent with significant myocardial ischemia or infarction. There appears to be mild cardiomegaly. Gated images show well preserved global left ventricular systolic function without distinct regional wall motion abnormality. Left ventricular ejection fraction is calculated to be 60%. CONCLUSIONS: 1. No evidence of any significant myocardial ischemia or infarction on this study. 2. Normal regional wall motion. 3. Normal global left ventricular systolic function with a calculated ejection fraction of 60%. 4. Mild cardiomegaly. Job ID: [id number] DocumentID: [id number] Dictated Date: 03/14/2023 12:58:38 General Duty Nurse Date: 03/14/2023 16:53:00 Dictated By: BEBE AGUAYO MD; CANELO; FACP; FACC;
== END ==
LOC: CARD 11:50
PROVIDERS: ATTEND Nurse Practitioner Family
DX: I25.10 Atherosclerotic heart disease of native coronary artery without angina pectoris (principal)
CPT/HCPCS: 78452; 93017

== ENCOUNTER 2023-04-07 20:25 | Emergency (ER) | payer OTHER ==
[~2023-04-07] VITALS: Ht 177 cm; Wt 107.0 kg
[~2023-04-07 20:25] MED LIST changes: -CATHETER FLUSH 10 ML SYR IVP PRN; -REGADENOSON 0.4 MG/5 ML SYR (LEXISCAN) IV ONE
--- NOTE | 2023-04-07 20:56 | ED GU-Male ---
General Chief Complaint: - Reproductive Stated Complaint: UTI Nursing Triage Note: pt presents to ED with reports of burning and pain with urination x 3 days. pt states he's had chronic UTIs for about a year now. finished a course of bactrim 1 week ago. has chronic mariscal. Source: patient (LIMITED HISTORIAN) History of Present Illness Date Seen by Provider: April 07, 2023 Time Seen by Provider: 20:45 Allergies and Home Medications Allergies Coded Allergies: ceftriaxone (Verified Allergy, Unknown, 11/08/22) codeine (Verified Allergy, Unknown, 11/08/22) Patient Home Medication List Levofloxacin (Levofloxacin) 500 Mg Tablet, 500 MG PO DAILY Prescribed by: DESIRE CASTELLANOS on 04/07/236 Nitrofurantoin Macrocrystal (Nitrofurantoin) 100 Mg Capsule, 100 MG PO BID Prescribed by: Martha Goldberg on 12/24/22 1257 Nitrofurantoin Monohyd/M-Cryst (Macrobid 100 mg Capsule) 100 Mg Capsule, 1 TAB PO BID Prescribed by: DESIRE CASTELLANOS on 11/08/222047 Phenazopyridine HCl (Pyridium) 200 Mg Tablet, 1 TAB PO TID Prescribed by: DESIRE CASTELLANOS on 11/08/222047 Sulfamethoxazole/Trimethoprim (Bactrim Ds Tablet) 1 Each Tablet, 1 EACH PO BID Prescribed by: LEILANI SALVADOR on 12/29/22 1749 Sulfamethoxazole/Trimethoprim (Bactrim Ds Tablet) 1 Each Tablet, 1 EACH PO BID Prescribed by: KYE SHAFER on 02/26/23 1534 Tamsulosin HCl (Flomax) 0.4 Mg Cap, 0.4 MG PO DAILY Prescribed by: DESIRE CASTELLANOS on 11/08/222047 Past Ngjjxnz-Fyejvo-Odonjv Hx Patient Social History Tobacco Use?: No Substance use?: No Alcohol Use?: No Pt feels they are or have been: No Immunizations Up To Date Influenza Vaccine Up-to-Date: Yes; Up-to-Date Seasonal Allergies Seasonal Allergies: Yes Past Medical History Surgeries: Yes Cardiac, Coronary Stent, Defibrillator, Orthopedic, Pacemaker Respiratory: Yes COPD Cardiac: Yes ([place] WITH STENT X 1; PACEMAKER/DEFIBRILLATOR; CHF) Atrial Fibrillation, Cardiomyopathy, Chronic Edema/Swelling, Coronary Artery Disease, Heart Attack, High Cholesterol, Hypertension Neurological: Yes Neuropathy, Parkinson's Disease Genitourinary: Yes (INDWELLING MARISCAL X 6 MONTHS, PER PT ON 11/08/22) Prostate Problems, UTI-Chronic Gastrointestinal: Yes Gastroesophageal Reflux, Liver Disease/Jaundice, Chronic Constipation Musculoskeletal: Yes (S/P BACK SURGERY;LEFT DISTAL FIBULA FX 2021--NO SURGERY) Arthritis, Chronic Back Pain, Fractures Endocrine: Yes (OBESITY) Diabetes, Non-Insulin dep HEENT: No Cancer: No Psychosocial: Yes Anxiety, Depression Integumentary: No Blood Disorders: No Family Medical History SOCIAL HISTORY: -SMOKED TEEN, QUIT AGE 17 -ETOH USE TEEN, QUIT AGE 17 -DENIES DRUG USE PAST SURGICAL HISTORY: -BACK SURGERY X 1 -CARDIAC CATH WITH STENT X 1 -PACEMAKER/DEFIBRILLATOR Physical Exam Vital Signs Vital Signs - First Documented 04/07/23 20:34 Temp 37.5 Pulse 70 Resp 18 B/P (MAP) 124/81 (95) Pulse Ox 98 O2 Delivery Room Air Capillary Refill : Height, Weight, BMI Height: '" Weight: lbs. oz. kg; 34.00 BMI Method: Progress/Results/Core Measures Suspected Sepsis SIRS Temperature: Pulse: 70 Respiratory Rate: 18 Laboratory Tests 04/07/23 21:10: White Blood Count 11.8H Blood Pressure 124 /81 Mean: 95 Laboratory Tests 04/07/23 21:10: Creatinine 1.06, Platelet Count 241, Total Bilirubin 0.4 Results/Orders Lab Results Laboratory Tests Test 04/07/23 21:01 04/07/23 21:10 Range/Units Urine Color BROWN H Urine Clarity TURBID Urine pH 8.5 5-9 Urine Specific [place] 1.010 L 1.016-1.022 Urine Protein 3+ H NEGATIVE Urine Glucose (UA) NEGATIVE NEGATIVE Urine Ketones NEGATIVE NEGATIVE Urine Nitrite POSITIVE H NEGATIVE Urine Bilirubin 1+ H NEGATIVE Urine Urobilinogen 1.0 < = 1.0 MG/DL Urine Leukocyte Esterase 3+ H NEGATIVE Urine RBC (Auto) 3+ H NEGATIVE Urine RBC TNTC H /HPF Urine WBC TNTC H /HPF Urine Squamous Epithelial Cells 0-2 /HPF Urine Crystals PRESENT H /LPF Urine Amorphous Sediment MOD ADRIEL PHOSPHATE H /LPF Urine Bacteria LARGE H /HPF Urine Casts NONE /LPF Urine Mucus NEGATIVE /LPF Urine Culture Indicated YES White Blood Count 11.8 H 4.3-11.0 10^3/uL Red Blood Count 4.99 4.30-5.52 10^6/uL Hemoglobin 13.3 13.3-17.7 g/dL Hematocrit 43 40-54 % Mean Corpuscular Volume 85 80-99 fL Mean Corpuscular Hemoglobin 27 25-34 pg Mean Corpuscular Hemoglobin Concent 31 L 32-36 g/dL Red Cell Distribution Width 16.6 H 10.0-14.5 % Platelet Count 241 130-400 10^3/uL Mean Platelet Volume 9.0 9.0-12.2 fL Immature Granulocyte % (Auto) 0 % Neutrophils (%) (Auto) 71 42-75 % Lymphocytes (%) (Auto) 19 12-44 % Monocytes (%) (Auto) 9 0-12 % Eosinophils (%) (Auto) 1 0-10 % Basophils (%) (Auto) 0 0-10 % Neutrophils # (Auto) 8.3 H 1.8-7.8 10^3/uL Lymphocytes # (Auto) 2.2 1.0-4.0 10^3/uL Monocytes # (Auto) 1.1 H 0.0-1.0 10^3/uL Eosinophils # (Auto) 0.1 0.0-0.3 10^3/uL Basophils # (Auto) 0.1 0.0-0.1 10^3/uL Immature Granulocyte # (Auto) 0.1 0.0-0.1 10^3/uL Sodium Level 141 135-145 MMOL/L Potassium Level 4.5 3.6-5.0 MMOL/L Chloride Level 105 98-107 MMOL/L Carbon Dioxide Level 26 21-32 MMOL/L Anion Gap 10 5-14 MMOL/L Blood Urea Nitrogen 25 H 7-18 MG/DL Creatinine 1.06 0.60-1.30 MG/DL Estimat Glomerular Filtration Rate 74 BUN/Creatinine Ratio 24 Glucose Level 116 H 70-105 MG/DL Calcium Level 9.7 8.5-10.1 MG/DL Corrected Calcium 9.5 8.5-10.1 MG/DL Total Bilirubin 0.4 0.1-1.0 MG/DL Aspartate Amino Transf (AST/SGOT) 13 5-34 U/L Alanine Aminotransferase (ALT/SGPT) < 6 0-55 U/L Alkaline Phosphatase 65 40-136 U/L Total Protein 7.2 6.4-8.2 GM/DL Albumin 4.2 3.2-4.5 GM/DL My Orders Orders - DESIRE CASTELLANOS DO Ua Culture If Indicated (04/07/23 20:44) Ed Iv/Invasive Line Start (04/07/23 20:56) Monitor-Rhythm Ecg Trace Only (04/07/23 20:56) Cbc With Automated Diff (04/07/23 20:56) Comprehensive Metabolic Panel (04/07/23 20:56) Urine Culture (04/07/23 21:01) Levofloxacin 500 Mg/100 Ml Iv (Levaquin (04/07/23 21:45) Ed Iv/Invasive Line Start (04/07/23 21:43) Ns Iv 1000 Ml (Sodium Chloride 0.9%) (04/07/23 21:45) Catheter(Urinary) Insert & Ass 03,15 (04/07/23 21:52) Lidocaine 2% (Urojet) (Xylocaine Urojet) (04/07/23 22:00) Medications Given in ED Current Medications Medications Dose Ordered Sig/Esdras Route Start Time Stop Time Status Last Admin Dose Admin Levofloxacin/ Dextrose 100 ml @ 100 mls/hr ONCE ONCE IV 04/07/23 21:45 04/07/23 22:44 DC 04/07/23 21:56 100 MLS/HR Lidocaine HCl 10 ml ONCE ONCE TOP 04/07/23 22:00 04/07/23 22:01 DC 04/07/23 22:00 10 ML Vital Signs/I&O 04/07/23 04/07/23 20:34 22:36 Temp 37.5 Pulse 70 70 Resp 18 14 B/P (MAP) 124/81 (95) 115/87 Pulse Ox 98 98 O2 Delivery Room Air Room Air Capillary Refill : Blood Pressure Mean: 95 Departure Impression Primary Impression: UTI (urinary tract infection) Additional Impressions: Indwelling catheter replaced Chronic indwelling Mariscal catheter Disposition: HOME, SELF-CARE Condition: Stable Departure-Patient Inst. Decision time for Depature: 22:00 Referrals: NO,LOCAL PHYSICIAN (PCP/Family) Primary Care Physician Patient Instructions: Urinary Tract Infection, Adult (DC) Add. Discharge Instructions: INCREASE YOUR FLUID INTAKE CONTINUE ALL YOUR REGULAR MEDICATIONS PRESCRIBED FOLLOW UP WITH YOUR UROLOGIST AND YOUR [facility] FOR FURTHER CARE RETURN TO ER IF SYMPTOMS WORSEN All discharge instructions reviewed with patient and/or family. Voiced understanding. Scripts Levofloxacin (Levofloxacin) 500 Mg Tablet 500 MG PO DAILY, #10 TAB 0 Refills Prov: DESIRE CASTELLANOS DO 04/07/23 DESIRE CASTELLANOS DO April 07, 2023 20:56
[2023-04-07 21:08] LABS: CLARITY,URINE TURBID; COLOR,URINE BROWN; GLUCOSE, URINE (UA) NEGATIVE (NEGATIVE); KETONES,URINE NEGATIVE (NEGATIVE); LEUKOCYTE ESTERASE ,URINE 3+ (NEGATIVE); NITRITE,URINE POSITIVE (NEGATIVE); PH,URINE 8.5 (5-9); PROTEIN,URINE 3+ (NEGATIVE)
[2023-04-07 21:16] LABS: BILIRUBIN,URINE 1+ (NEGATIVE)
[2023-04-07 21:19] LABS: RBC,URINE TNTC /HPF
[2023-04-07 21:20] LABS: BASOPHILS # (AUTO) 0.1 10^3/uL (0.0-0.1); BASOPHILS % (AUTO) 0 % (0-10); EOSINOPHILS # (AUTO) 0.1 10^3/uL (0.0-0.3); EOSINOPHILS % (AUTO) 1 % (0-10); HEMATOCRIT 43 % (40-54); HEMOGLOBIN 13.3 g/dL (13.3-17.7); LYMPHOCYTES # (AUTO) 2.2 10^3/uL (1.0-4.0); LYMPHOCYTES % (AUTO) 19 % (12-44); MEAN CORPUSCULAR HEMOGLOBIN 27 pg (25-34); MEAN CORPUSCULAR HGB CONC 31 g/dL (32-36); MEAN CORPUSCULAR VOLUME 85 fL (80-99); MONOCYTES # (AUTO) 1.1 10^3/uL (0.0-1.0); MONOCYTES % (AUTO) 9 % (0-12); NEUTROPHILS # (AUTO) 8.3 10^3/uL (1.8-7.8); NEUTROPHILS % (AUTO) 71 % (42-75); PLATELET COUNT 241 10^3/uL (130-400); WHITE BLOOD COUNT 11.8 10^3/uL (4.3-11.0)
[2023-04-07 21:20] LABS: BACTERIA,URINE LARGE /HPF; SQUAMOUS EPITHELIAL CELL,UR 0-2 /HPF; WBC,URINE TNTC /HPF
[2023-04-07 21:21] LABS: AMORPHOUS SEDIMENT,UR MOD AMOR PHOSPHATE /LPF
[2023-04-07 21:41] LABS: ALANINE AMINOTRANSFERASE < 6 U/L (0-55); ALBUMIN 4.2 GM/DL (3.2-4.5); ALKALINE PHOSPHATASE 65 U/L (40-136); BILIRUBIN,TOTAL 0.4 MG/DL (0.1-1.0); BUN/CREATININE RATIO 24; CALCIUM 9.7 MG/DL (8.5-10.1); CARBON DIOXIDE 26 MMOL/L (21-32); CHLORIDE 105 MMOL/L (98-107); CREATININE SERUM 1.06 MG/DL (0.60-1.30); GFR ESTIMATED 74; GLUCOSE 116 MG/DL (70-105); POTASSIUM 4.5 MMOL/L (3.6-5.0); SODIUM 141 MMOL/L (135-145); TOTAL PROTEIN 7.2 GM/DL (6.4-8.2)
[2023-04-07] MEDS ORDERED: NS IV 1000 ML 1,000 ML IV SCH (21:45)
[2023-04-07] MEDS ORDERED: LIDOCAINE UROJET 2% GEL 10 ML PKG TOP ONE (22:00)
[2023-04-07] MEDS ORDERED: LEVO-55 PO (22:06)
[2023-04-07 22:36] VITALS: BP 115/87
== END 2023-04-07 22:47 | disposition home or self-care (01) ==
LOC: EDUNIT# 20:25 → ER 20:27
DX: Z46.6 Encounter for fitting and adjustment of urinary device (principal); N39.0 Urinary tract infection, site not specified; E66.9 Obesity, unspecified; Z87.891 Personal history of nicotine dependence; Z68.34 Body mass index [BMI] 34.0-34.9, adult; Z88.1 Allergy status to other antibiotic agents
CPT/HCPCS: 36415; 51702; 80053; 81000; 85025; 87077; 87088; 87186; 93041

== ENCOUNTER 2023-06-01 11:46 | Observation (INO) | payer OTHER, MEDICARE ==
[~2023-06-01] VITALS: Ht 177.8 cm; Wt 111.4 kg
[~2023-06-01 11:46] MED LIST changes: +LEVO-55 PO
--- NOTE | 2023-06-01 12:17 | ED GU-Male ---
General Chief Complaint: Catheter/Drain/Tube Problems Stated Complaint: CATHETER ISSUE Nursing Triage Note: PT AMBULATE TO ROOM 09 WITHOUT DIFFICULTY WITH C/O SUPRAPUBIC CATHETER BLEEDING STARTING LAST NIGHT. Source: patient Exam Limitations: no limitations History of Present Illness Date Seen by Provider: Jun 01, 2023 Time Seen by Provider: 12:14 Initial Comments Patient is a 72-year-old male with a history of a suprapubic catheter who presents to the ED for blood in his catheter bag and bleeding around his stoma near the catheter tubing. Patient states he noted some dark urine yesterday evening. Patient states he noted bleeding around the stoma this morning. Patient does take Eliquis for history of coronary artery disease. He does report reports some pain and discomfort around the penis. Patient urologist is Prudencio Wallace at the [facility] [place]. May 21 increased his catheter to a 18 [place]. Had a suprapubic catheter replaced last month. Patient denies fever, chills, nausea, vomiting, diarrhea, chest pain, shortness of breath. Allergies and Home Medications Allergies Coded Allergies: ceftriaxone (Verified Allergy, Unknown, 11/08/22) codeine (Verified Allergy, Unknown, 11/08/22) Patient Home Medication List Home Medication List Reviewed: Yes Levofloxacin (Levofloxacin) 500 Mg Tablet, 500 MG PO DAILY Prescribed by: DESIRE CASTELLANOS on 04/07/232205 Nitrofurantoin Macrocrystal (Nitrofurantoin) 100 Mg Capsule, 100 MG PO BID Prescribed by: Martha Goldberg on 12/24/22 1257 Nitrofurantoin Monohyd/M-Cryst (Macrobid 100 mg Capsule) 100 Mg Capsule, 1 TAB PO BID Prescribed by: DESIRE CASTELLANOS on 11/08/222047 Phenazopyridine HCl (Pyridium) 200 Mg Tablet, 1 TAB PO TID Prescribed by: DESIRE CASTELLANOS on 11/08/222047 Sulfamethoxazole/Trimethoprim (Bactrim Ds Tablet) 1 Each Tablet, 1 EACH PO BID Prescribed by: LEILANI SALVADOR on 12/29/22 1749 Sulfamethoxazole/Trimethoprim (Bactrim Ds Tablet) 1 Each Tablet, 1 EACH PO BID Prescribed by: KYE SHAFER on 02/26/23 1534 Tamsulosin HCl (Flomax) 0.4 Mg Cap, 0.4 MG PO DAILY Prescribed by: DESIRE CASTELLANOS on 11/08/222047 Review of Systems Review of Systems Constitutional: No chills, No malaise, No weakness EENTM: No hearing loss, No blurred vision, No double vision Cardiovascular: No chest pain Gastrointestinal: No abdominal pain, No diarrhea, No nausea, No vomiting Genitourinary: denies burning, denies discharge; other (Hematuria) Musculoskeletal: No back pain, No joint pain Skin: No change in color, No change in hair/nails All Other Systemes Reviewed Negative Unless Noted: Yes Past Nmqrxyj-Lxkqlt-Fumlmr Hx Patient Social History Tobacco Use?: No Smokeless Tobacco Frequency: Never a User Use of E-Cig and/or Vaping dev: No Use of E-Cig and/or Vaping Ntao: Never a User Substance use?: No Alcohol Use?: No Pt feels they are or have been: No Seasonal Allergies Seasonal Allergies: Yes Past Medical History Surgeries: Yes Cardiac, Coronary Stent, Defibrillator, Orthopedic, Pacemaker Respiratory: Yes COPD Cardiac: Yes (CO WITH STENT X 1; PACEMAKER/DEFIBRILLATOR; CHF) Atrial Fibrillation, Cardiomyopathy, Chronic Edema/Swelling, Coronary Artery Disease, Heart Attack, High Cholesterol, Hypertension Neurological: Yes Neuropathy, Parkinson's Disease Genitourinary: Yes (INDWELLING MARISCAL X 6 MONTHS, PER PT ON 11/08/22) Prostate Problems, UTI-Chronic Gastrointestinal: Yes Gastroesophageal Reflux, Liver Disease/Jaundice, Chronic Constipation Musculoskeletal: Yes (S/P BACK SURGERY;LEFT DISTAL FIBULA FX 2021--NO SURGERY) Arthritis, Chronic Back Pain, Fractures Endocrine: Yes (OBESITY) Diabetes, Non-Insulin dep HEENT: No Cancer: No Psychosocial: Yes Anxiety, Depression Integumentary: No Blood Disorders: No Family Medical History SOCIAL HISTORY: -SMOKED TEEN, QUIT AGE 17 -ETOH USE TEEN, QUIT AGE 17 -DENIES DRUG USE PAST SURGICAL HISTORY: -BACK SURGERY X 1 -CARDIAC CATH WITH STENT X 1 -PACEMAKER/DEFIBRILLATOR Physical Exam Vital Signs Vital Signs - First Documented 06/01/23 11:52 Temp 36.9 Pulse 73 Resp 19 B/P (MAP) 109/79 (89) O2 Delivery Room Air Capillary Refill : Less Than 3 Seconds Height, Weight, BMI Height: '" Weight: lbs. oz. kg; 34.00 BMI Method: General Appearance: WD/WN, no apparent distress HEENT: PERRL/EOMI, normal ENT inspection, TMs normal, pharynx normal Neck: non-tender, full range of motion, supple Cardiovascular: regular rate, rhythm, no edema, no gallop, no JVD Respiratory: chest non-tender, lungs clear, normal breath sounds, no respiratory distress, no accessory muscle use Gastrointestinal: normal bowel sounds, non tender, soft, no organomegaly, other (Mild bright active bleeding near the stoma and catheter tubing) Genital/Rectal: other (Dark urine with clots in the catheter bag.) Back: normal inspection, no CVA tenderness Extremities: normal range of motion, non-tender, normal inspection, no pedal edema, no calf tenderness Neurologic/Psychiatric: cardiovascular physician assistant II-XII nml as tested, no motor/sensory deficits, alert, normal mood/affect, oriented x 3 Skin: normal color, warm/dry Progress/Results/Core Measures Suspected Sepsis SIRS Temperature: Pulse: 73 Respiratory Rate: 19 Laboratory Tests 06/01/23 12:20: White Blood Count 8.7 Blood Pressure 109 /79 Mean: 89 Laboratory Tests 06/01/23 12:20: Creatinine 0.79, INR Comment 1.5H, Platelet Count 201, Total Bilirubin 0.5 Results/Orders Lab Results Laboratory Tests Test 06/01/23 12:20 06/01/23 13:25 Range/Units White Blood Count 8.7 4.3-11.0 10^3/uL Red Blood Count 5.00 4.30-5.52 10^6/uL Hemoglobin 13.4 13.3-17.7 g/dL Hematocrit 43 40-54 % Mean Corpuscular Volume 86 80-99 fL Mean Corpuscular Hemoglobin 27 25-34 pg Mean Corpuscular Hemoglobin Concent 31 L 32-36 g/dL Red Cell Distribution Width 16.4 H 10.0-14.5 % Platelet Count 201 130-400 10^3/uL Mean Platelet Volume 10.0 9.0-12.2 fL Immature Granulocyte % (Auto) 0 % Neutrophils (%) (Auto) 71 42-75 % Lymphocytes (%) (Auto) 20 12-44 % Monocytes (%) (Auto) 6 0-12 % Eosinophils (%) (Auto) 2 0-10 % Basophils (%) (Auto) 1 0-10 % Neutrophils # (Auto) 6.2 1.8-7.8 10^3/uL Lymphocytes # (Auto) 1.7 1.0-4.0 10^3/uL Monocytes # (Auto) 0.5 0.0-1.0 10^3/uL Eosinophils # (Auto) 0.2 0.0-0.3 10^3/uL Basophils # (Auto) 0.1 0.0-0.1 10^3/uL Immature Granulocyte # (Auto) 0.0 0.0-0.1 10^3/uL Prothrombin Time 18.4 H 12.2-14.7 SEC INR Comment 1.5 H 0.8-1.4 Activated Partial Thromboplast Time 40 H 24-35 SEC Sodium Level 141 135-145 MMOL/L Potassium Level 4.1 3.6-5.0 MMOL/L Chloride Level 105 98-107 MMOL/L Carbon Dioxide Level 24 21-32 MMOL/L Anion Gap 12 5-14 MMOL/L Blood Urea Nitrogen 14 7-18 MG/DL Creatinine 0.79 0.60-1.30 MG/DL Estimat Glomerular Filtration Rate 93 BUN/Creatinine Ratio 18 Glucose Level 97 70-105 MG/DL Calcium Level 9.4 8.5-10.1 MG/DL Corrected Calcium 9.6 8.5-10.1 MG/DL Total Bilirubin 0.5 0.1-1.0 MG/DL Aspartate Amino Transf (AST/SGOT) 15 5-34 U/L Alanine Aminotransferase (ALT/SGPT) < 6 0-55 U/L Alkaline Phosphatase 72 40-136 U/L Total Protein 6.5 6.4-8.2 GM/DL Albumin 3.8 3.2-4.5 GM/DL Urine Color RED H Urine Clarity BLOODY H Urine pH 8.5 5-9 Urine Specific [place] 1.030 H 1.016-1.022 Urine Protein 4+ NEGATIVE Urine Glucose (UA) NEGATIVE NEGATIVE Urine Ketones 1+ H NEGATIVE Urine Nitrite POSITIVE H NEGATIVE Urine Bilirubin 3+ H NEGATIVE Urine Urobilinogen 8 H < = 1.0 MG/DL Urine Leukocyte Esterase 3+ H NEGATIVE Urine RBC (Auto) 3+ H NEGATIVE Urine RBC TNTC H /HPF Urine WBC 5-10 H /HPF Urine Squamous Epithelial Cells 0-2 /HPF Urine Crystals NONE /LPF Urine Bacteria FEW H /HPF Urine Casts NONE /LPF Urine Mucus NEGATIVE /LPF Urine Culture Indicated YES My Orders Orders - FRANCISCO J CASTANON Cbc With Automated Diff (06/01/23 12:02) Comprehensive Metabolic Panel (06/01/23 12:02) Partial Thromboplastin Time (06/01/23 12:02) Protime With Inr (06/01/23 12:02) Ua Culture If Indicated (06/01/23 12:38) Ct Abdomen/Pelvis W (06/01/23 13:13) Iohexol Injection (Omnipaque 350 Mg/Ml 1 (06/01/23 13:45) Received Contrast (Hold Metformin- Contr (06/01/23 13:45) Ns (Ivpb) (Sodium Chloride 0.9% Ivpb Bag (06/01/23 13:45) Urine Culture (06/01/23 13:25) Ed Admission (Communication) (06/01/23 18:07) Catheter(Urinary) Insert & Ass 0315 (06/01/23 18:26) Urinary Catheter: Hand Irrigat (06/01/23 18:26) Medications Given in ED Current Medications Medications Dose Ordered Sig/Esdras Route Start Time Stop Time Status Last Admin Dose Admin Iohexol 100 ml ONCE ONCE IV 06/01/23 13:45 06/01/23 13:46 DC 06/01/23 14:49 80 ML Sodium Chloride 100 ml ONCE ONCE IV 06/01/23 13:45 06/01/23 13:46 DC 06/01/23 14:49 80 ML Vital Signs/I&O 06/01/23 11:52 Temp 36.9 Pulse 73 Resp 19 B/P (MAP) 109/79 (89) O2 Delivery Room Air Capillary Refill : Less Than 3 Seconds Blood Pressure Mean: 89 Departure Communication (PCP) Reviewed previous ER visits, H&P, lab testing. Patient with bloody urine. Started having bleeding around the stoma where his catheter tubing was today. Differential diagnosis, bladder mass, bladder hemorrhaging, UTI, nephrolithiasis, urolithiasis. No specific abdominal pain. Does report some pressure around his penis. Suprapubic catheter placed by interventional radiologist at [facility] last April. History of neurogenic bladder. Currently follows Dr. Prudencio Wallace urologist at [facility] in [facility]. Patient had a 12 [place] switch out to 18 [place] May 21. No complications. Due to the active bleeding and large clots in the catheter tubing this was removed and replaced by 18 [place] catheter. CBC, CMP, urinalysis and coags. Does take Eliquis for coronary artery disease. CT abdomen pelvis was ordered. Vital signs stable. CBC showed normal white blood count and hemoglobin. Chemistry grossly unremarkable with normal kidney function. No history of bladder cancer, prostate cancer. Urinalysis positive for nitrates, blood history of chronic UTI not currently on antibiotic according to patient. Color of urine is bright red and bloody. Positive for nitrites. CT abdomen and pelvis questionable of abnormal attenuation within the urinary bladder which could relate to blood product or mass. Further evaluation with cystoscopy. Manually irrigated with 1000 ml of normal saline with subtle improvement of the clots. Attempted to contact his urologist Prudencio Wallace for over 3 hours but this was unsuccessful. Did consult urology at [facility] Dr. serrano who is on-call. Talked with his nurse practitioner Nevin. Consulted regarding today's results. She consulted with the urologist as he was in surgery. Recommended no transfer at this time. Recommended irrigation at this time. [facility] physician who states that they do not have urology availability there. After discussing with Dr. Anderson who agreed to admit patient for irrigation. If bleeding continued patient may be transferred. This was discussed with family and they agreed. Currently hemodynamically stable. Will require outpatient follow-up with cystoscopy if bleeding is controlled. Dr. Serrano did discussed with Nevin that potentially could stop his Eliquis for a few days and irrigate to help stop bleeding. Impression Primary Impression: Urinary tract infection Additional Impression: Hematuria Disposition: ADMITTED INPATIENT Condition: Stable Admissions Decision to Admit Reason: Admit from ER (General) Decision to Admit/Date: Jun 01, 2023 Time/Decision to Admit Time: 18:02 Departure-Patient Inst. Decision time for Depature: 18:02 Referrals: BARBARA MCCLURE DO (PCP/Family) Primary Care Physician FRANCISCO J CASTANON Jun 01, 2023 12:17
[2023-06-01 12:29] LABS: BASOPHILS # (AUTO) 0.1 10^3/uL (0.0-0.1); BASOPHILS % (AUTO) 1 % (0-10); EOSINOPHILS # (AUTO) 0.2 10^3/uL (0.0-0.3); EOSINOPHILS % (AUTO) 2 % (0-10); HEMATOCRIT 43 % (40-54); HEMOGLOBIN 13.4 g/dL (13.3-17.7); LYMPHOCYTES # (AUTO) 1.7 10^3/uL (1.0-4.0); LYMPHOCYTES % (AUTO) 20 % (12-44); MEAN CORPUSCULAR HEMOGLOBIN 27 pg (25-34); MEAN CORPUSCULAR HGB CONC 31 g/dL (32-36); MEAN CORPUSCULAR VOLUME 86 fL (80-99); MONOCYTES # (AUTO) 0.5 10^3/uL (0.0-1.0); MONOCYTES % (AUTO) 6 % (0-12); NEUTROPHILS # (AUTO) 6.2 10^3/uL (1.8-7.8); NEUTROPHILS % (AUTO) 71 % (42-75); PLATELET COUNT 201 10^3/uL (130-400); WHITE BLOOD COUNT 8.7 10^3/uL (4.3-11.0)
[2023-06-01 12:37] LABS: ALBUMIN 3.8 GM/DL (3.2-4.5); CHLORIDE 105 MMOL/L (98-107); POTASSIUM 4.1 MMOL/L (3.6-5.0); SODIUM 141 MMOL/L (135-145)
[2023-06-01 12:38] LABS: CALCIUM 9.4 MG/DL (8.5-10.1)
[2023-06-01 12:39] LABS: GLUCOSE 97 MG/DL (70-105); TOTAL PROTEIN 6.5 GM/DL (6.4-8.2)
[2023-06-01 12:40] LABS: CARBON DIOXIDE 24 MMOL/L (21-32); INR 1.5 (0.8-1.4); PROTHROMBIN TIME PATIENT 18.4 SEC (12.2-14.7)
[2023-06-01 12:41] LABS: BILIRUBIN,TOTAL 0.5 MG/DL (0.1-1.0)
[2023-06-01 12:43] LABS: ALKALINE PHOSPHATASE 72 U/L (40-136); CREATININE SERUM 0.79 MG/DL (0.60-1.30); GFR ESTIMATED 93
[2023-06-01 12:44] LABS: BUN/CREATININE RATIO 18
[2023-06-01 12:46] LABS: ALANINE AMINOTRANSFERASE < 6 U/L (0-55)
[2023-06-01] MEDS ORDERED: IOHEXOL 350 MG/ML 100 ML (OMNIPAQUE 350) VIAL IV ONE (13:45)
[2023-06-01] MEDS ORDERED: HOLD METFORMIN - RECEIVED CONTRAST 20 ML VIAL IV SCH (13:45)
[2023-06-01] MEDS ORDERED: NS 100 ML (IVPB) BAG IV ONE (13:45)
[2023-06-01 13:58] LABS: CLARITY,URINE BLOODY; COLOR,URINE RED; PH,URINE 8.5 (5-9)
[2023-06-01 13:59] LABS: BILIRUBIN,URINE 3+ (NEGATIVE); GLUCOSE, URINE (UA) NEGATIVE (NEGATIVE); KETONES,URINE 1+ (NEGATIVE); LEUKOCYTE ESTERASE ,URINE 3+ (NEGATIVE); NITRITE,URINE POSITIVE (NEGATIVE); PROTEIN,URINE 4+ (NEGATIVE)
[2023-06-01 14:00] LABS: BACTERIA,URINE FEW /HPF; RBC,URINE TNTC /HPF; SQUAMOUS EPITHELIAL CELL,UR 0-2 /HPF
--- NOTE | 2023-06-01 15:10 | Diagnostic Imaging Report ---
Procedure: CT abdomen and pelvis with contrast. Technique: Multiple contiguous axial images were obtained through the abdomen and pelvis after administration of intravenous contrast. Auto Exposure Controls were utilized during the CT exam to meet ALARA standards for radiation dose reduction. All CT scans use one or more of the following dose optimizing techniques: automated exposure control, MA and/or KvP adjustment based on patient size and exam type or iterative reconstruction. Date: June 01, 2023. Indication: 72-year-old male, suprapubic abdominal pain and hematuria. Comparison: None. Findings: There are calcified granulomas in the right lower lobe. There is mild atelectasis and/or scarring in the lower lobes bilaterally. The heart is not enlarged. There is no pericardial effusion. The liver is unremarkable in size and contour. There is no identified liver lesion. The main, right, left portal veins are patent. The gallbladder is unremarkable. There is no biliary ductal dilation. The main pancreatic duct is not abnormally dilated. Unremarkable appearance of the pancreatic parenchyma. The spleen is normal in size. The adrenal glands are grossly unremarkable. There is a low-attenuation right renal lesion on axial image 58 measuring 2.5 cm in size. Internal attenuation is consistent with benign cyst. The urinary collecting systems are not distended. There is no identified renal or ureteral stone. There is a suprapubic catheter in the urinary bladder which is collapsed and otherwise not particularly well evaluated. There is note of gas within the urinary bladder. The intestinal tract is not distended. There is no free intraperitoneal air. There is no drainable fluid collection. There is no free fluid in the abdomen or pelvis. There is a small fat-containing left inguinal hernia. There are mild atherosclerotic calcifications. There is no identified abnormally enlarged lymph node in the abdomen or pelvis meeting CT size criteria for adenopathy. There are multilevel degenerative changes of the spine. There is no identified acute bony abnormality. Impression: 1. Suprapubic catheter within the urinary bladder which is collapsed and otherwise not well evaluated. There is note of gas within the urinary bladder. This potentially could relate to recent catheterization. There is question of abnormal attenuation within the urinary bladder which could relate to blood product or mass. This is poorly evaluated on this exam. Further evaluation with cystoscopy may be of benefit. 2. No identified renal or ureteral stone. 3. Benign right renal cyst. No solid renal mass. Dictated by: Dictated on workstation # [id number]
[2023-06-01 19:10] VITALS: BP 159/83
[2023-06-01] MEDS ORDERED: HYDROcodone/ACETAMINOPHEN 5 MG/325 MG TABLET PO PRN (19:45)
[2023-06-01] MEDS ORDERED: ANTACID SUSP 30 ML UDC (MYLANTA) PO PRN (19:45)
[2023-06-01] MEDS ORDERED: ONDANSETRON 4 MG/2 ML (SDV) Z0FRAN IV PRN (19:45)
[2023-06-01] MEDS ORDERED: MILK OF MAGNESIA 400 MG/5 ML 30 ML UDC PO PRN (19:45)
[2023-06-01] MEDS ORDERED: MELATONIN 3 MG TABLET PO PRN (19:45)
[2023-06-01] MEDS ORDERED: CALCIUM CARBONATE 500 MG CHEW TABLET PO PRN (19:45)
[2023-06-01] MEDS ORDERED: BISACODYL 10 MG SUPPOSITORY PR PRN (19:45)
[2023-06-01] MEDS ORDERED: ONDANSETRON 4 MG (ZOFRAN) ORAL DISSOLVE TAB PO PRN (19:45)
[2023-06-01] MEDS ORDERED: LACTULOSE SYRUP 10GM/15ML (ENULOSE) 30ML UDC PO PRN (19:45)
[2023-06-01] MEDS ORDERED: TRIM/SULFAMETH 160/800 (SEPTRA DS) TAB PO NR (20:00)
[2023-06-01] MEDS: NS IV 1000 ML 1,000 ML IV SCH (21:25)
[2023-06-01] MEDS: SENNOSIDES 8.6 MG (SENOKOT) TAB PO SCH (21:25)
[2023-06-01] MEDS: DOCUSATE SODIUM 100 MG (COLACE) CAP PO SCH (21:25)
[2023-06-02] VITALS (7 sets, daily range): BP systolic 115–152; BP diastolic 70–87
[2023-06-02] MEDS ORDERED: FLUT1DIS26 IH (01:52)
[2023-06-02] MEDS ORDERED: ALOG25TA2 PO (01:52)
[2023-06-02] MEDS ORDERED: ALFU10TA12 PO (01:53)
[2023-06-02] MEDS ORDERED: CARB1TAB41 PO (01:55)
[2023-06-02] MEDS ORDERED: CELE-63 PO (01:55)
[2023-06-02] MEDS ORDERED: CETI10TA24 PO (01:56)
[2023-06-02] MEDS ORDERED: CETI10TA17 PO (01:56)
[2023-06-02] MEDS ORDERED: DIGO125T3 PO (01:58)
[2023-06-02] MEDS ORDERED: APIX5TAB PO (02:00)
[2023-06-02] MEDS ORDERED: ENTA200T6 PO (02:00)
[2023-06-02] MEDS ORDERED: FLDR.1T PO (02:01)
[2023-06-02] MEDS ORDERED: GABA300S3 PO (02:02)
[2023-06-02] MEDS ORDERED: LOSA50TA63 PO (02:03)
[2023-06-02] MEDS ORDERED: METF-398 PO (02:04)
[2023-06-02] MEDS ORDERED: POTA-177 PO ×2 (02:09→09:08)
[2023-06-02] MEDS ORDERED: SERT-413 PO (02:09)
[2023-06-02] MEDS ORDERED: PANT40TA2 PO (02:09)
[2023-06-02 05:34] LABS: BASOPHILS # (AUTO) 0.1 10^3/uL (0.0-0.1); BASOPHILS % (AUTO) 1 % (0-10); EOSINOPHILS # (AUTO) 0.2 10^3/uL (0.0-0.3); EOSINOPHILS % (AUTO) 2 % (0-10); HEMATOCRIT 39 % (40-54); HEMOGLOBIN 12.2 g/dL (13.3-17.7); LYMPHOCYTES # (AUTO) 1.7 10^3/uL (1.0-4.0); LYMPHOCYTES % (AUTO) 18 % (12-44); MEAN CORPUSCULAR HEMOGLOBIN 27 pg (25-34); MEAN CORPUSCULAR HGB CONC 31 g/dL (32-36); MEAN CORPUSCULAR VOLUME 85 fL (80-99); MEAN PLATELET VOLUME 10.1 fL (9.0-12.2); MONOCYTES # (AUTO) 0.9 10^3/uL (0.0-1.0); MONOCYTES % (AUTO) 9 % (0-12); NEUTROPHILS # (AUTO) 6.8 10^3/uL (1.8-7.8); NEUTROPHILS % (AUTO) 70 % (42-75); PLATELET COUNT 188 10^3/uL (130-400); WHITE BLOOD COUNT 9.7 10^3/uL (4.3-11.0)
[2023-06-02 06:01] LABS: CALCIUM 8.9 MG/DL (8.5-10.1); CREATININE SERUM 0.78 MG/DL (0.60-1.30); POTASSIUM 3.6 MMOL/L (3.6-5.0)
[2023-06-02] MEDS: NS IV 1000 ML 1,000 ML IV SCH ×2 (06:13→07:39)
[2023-06-02] MEDS: SENNOSIDES 8.6 MG (SENOKOT) TAB PO SCH ×2 (07:39→19:53)
[2023-06-02] MEDS: TRIM/SULFAMETH 160/800 (SEPTRA DS) TAB PO SCH ×2 (07:39→17:44)
[2023-06-02] MEDS: DOCUSATE SODIUM 100 MG (COLACE) CAP PO SCH ×2 (07:39→19:53)
[2023-06-02] MEDS ORDERED: CARB1TAB40 PO (09:08)
[2023-06-02] MEDS ORDERED: DOCU-143 PO (09:08)
[2023-06-02] MEDS ORDERED: MAGN200T8 PO (09:08)
[2023-06-02] MEDS ORDERED: GBPN600T PO (09:08)
[2023-06-02] MEDS ORDERED: PANT20TA2 PO (09:08)
[2023-06-02] MEDS ORDERED: ATOR80TA76 PO (09:08)
[2023-06-02] MEDS ORDERED: CARB-300 PO (09:09)
[2023-06-02] MEDS: ACETAMINOPHEN 325 MG TABLET PO PRN (09:53)
--- NOTE | 2023-06-02 16:43 | History & Physical-Hospitalist ---
History of Present Illness HPI/Chief Complaint Daniel Cervantes is a 72 year old male with PMH HTN, HLD, CAD, AFib, COPD, BPH, Parkinson's, possible neurogenic bladder, suprapubic catheter, who presented with hematuria. He had a suprapubic catheter placed by a urologist in [place] in April. He was scheduled to have it "sized up" a week ago. They changed from a 12 tanzanian to 18 tanzanian. His family is concerned that they may have increased too quickly. He has also had some bleeding around the catheter insertion site. He denies any fevers. He denies abdominal pain. He has no other complaints or concerns. Source: patient, family Exam Limitations: no limitations Date Seen 06/02/23 Time Seen by a Provider: 10:25 Attending Physician Atif Islas DO PCP Admitting Physician: Jayde Downing MD Attending Physician: Jayde Downing MD Referring Physician Date of Admission Jun 01, 2023 at 19:03 Home Medications & Allergies Home Medications Reviewed patient Home Medication Reconciliation performed by pharmacy medication reconciliations quality technician fiberglass and/or nursing. Patients Allergies have been reviewed. Allergies Allergies Coded Allergies ceftriaxone (Verified Allergy, Unknown, 11/08/22) codeine (Verified Allergy, Unknown, 11/08/22) Past Mkhhtjz-Vwlcit-Rxtddb Hx Patient Social History Tobacco Use?: No Smoking Status: Never a Smoker Smokeless Tobacco Frequency: Never a User Use of E-Cig and/or Vaping dev: No Use of E-Cig and/or Vaping [place]: Never a User Substance use?: No Alcohol Use?: No Pt feels they are or have been: No Immunizations Up To Date Tetanus Booster (TDap): Unknown Seasonal Allergies Seasonal Allergies: Yes Current Status Advance Directives: Yes Advance Directive Location: Home Communicates: Verbally Primary Language: Lithuanian Preferred Spoken Language: Lithuanian Is interpretation needed?: No Sensory deficits: Vision impairment Implanted or Applied Medical D: Orthopedic hardware, Pacemaker, Stents Past Medical History Surgeries: Cardiac, Coronary Stent, Defibrillator, Orthopedic, Pacemaker COPD Atrial Fibrillation, Cardiomyopathy, Chronic Edema/Swelling, Coronary Artery Disease, Heart Attack, High Cholesterol, Hypertension Neuropathy, Parkinson's Disease Prostate Problems, UTI-Chronic Gastroesophageal Reflux, Liver Disease/Jaundice, Chronic Constipation Arthritis, Chronic Back Pain, Fractures Diabetes, Non-Insulin dep Anxiety, Depression Blood Disorders: No Family Medical History No Pertinent Family Hx SOCIAL HISTORY: -SMOKED TEEN, QUIT AGE 17 -ETOH USE TEEN, QUIT AGE 17 -DENIES DRUG USE PAST SURGICAL HISTORY: -BACK SURGERY X 1 -CARDIAC CATH WITH STENT X 1 -PACEMAKER/DEFIBRILLATOR Review of Systems Constitutional: no symptoms reported Respiratory: no symptoms reported Cardiovascular: no symptoms reported Gastrointestinal: no symptoms reported Physical Exam Physical Exam Vital Signs Vital Signs - First Documented 06/01/23 06/01/23 06/03/23 11:52 19:00 15:25 Temp 36.9 Pulse 73 Resp 19 B/P (MAP) 109/79 (89) Pulse Ox 96 O2 Delivery Room Air O2 Flow Rate 0.00 Capillary Refill : Less Than 3 Seconds Height, Weight, BMI Height: '" Weight: lbs. oz. kg; 35.23 BMI Method: General Appearance: No Apparent Distress, Obese HEENT: PERRL/EOMI, Pharynx Normal Neck: Normal Inspection, Supple Respiratory: Lungs Clear, No Respiratory Distress Cardiovascular: Regular Rate, Rhythm, No Murmur Gastrointestinal: Normal Bowel Sounds, Soft Extremity: Normal Inspection, No Pedal Edema Neurologic/Psychiatric: Alert, Normal Mood/Affect Skin: Normal Color, Warm/Dry Results Results/Procedures Labs Laboratory Tests 06/02/23 05:30 Patient resulted labs reviewed. Imaging: Reviewed Imaging Report Assessment/Plan Admission Diagnosis Hematuria Admission Status: Observation Assessment and Plan Hematuria Suprapubic catheter Neurogenic bladder BPH CBI Hold Eliquis, risks/benefits discussed Plan discussed with patient and family who are in agreement Will need outpatient follow up with Urology, possible cystoscopy Diagnosis/Problems Diagnosis/Problems (1) Hematuria Status: Acute (2) Suprapubic catheter Status: Acute (3) BPH (benign prostatic hyperplasia) Status: Acute (4) Neurogenic bladder Status: Acute (5) Parkinsons disease Status: Chronic (6) Obesity Status: Chronic (7) Afib Status: Chronic JAYDE DOWNING MD Jun 02, 2023 16:43
[2023-06-03] VITALS (7 sets, daily range): BP systolic 127–181; BP diastolic 70–109
[2023-06-03] MEDS: NS IV 1000 ML 1,000 ML IV SCH ×3 (03:15→19:58)
[2023-06-03] MEDS: ACETAMINOPHEN 325 MG TABLET PO PRN ×2 (04:09→13:59)
[2023-06-03] MEDS: TRIM/SULFAMETH 160/800 (SEPTRA DS) TAB PO SCH ×2 (08:03→17:04)
[2023-06-03] MEDS: DOCUSATE SODIUM 100 MG (COLACE) CAP PO SCH ×2 (08:03→19:57)
[2023-06-03] MEDS: SENNOSIDES 8.6 MG (SENOKOT) TAB PO SCH ×2 (08:03→19:57)
[2023-06-03] MEDS: polyethylene glycoL POWDER 17 GM (MIRALAX) PACK PO PRN (08:27)
[2023-06-03 14:53] LABS: CLARITY,URINE CLOUDY; COLOR,URINE AMBER; GLUCOSE, URINE (UA) TRACE (NEGATIVE); KETONES,URINE TRACE (NEGATIVE); LEUKOCYTE ESTERASE ,URINE 1+ (NEGATIVE); NITRITE,URINE POSITIVE (NEGATIVE); PH,URINE 5.5 (5-9); PROTEIN,URINE 2+ (NEGATIVE)
[2023-06-03 15:06] LABS: AMORPHOUS SEDIMENT,UR FEW AMOR URATES /LPF; BACTERIA,URINE MODERATE /HPF; RBC,URINE TNTC /HPF
[2023-06-03 15:08] LABS: BILIRUBIN,URINE 2+ (NEGATIVE)
--- NOTE | 2023-06-03 16:24 | Progress Note - Hospitalist ---
Subjective HPI/CC On Admission Date Seen by Provider: Jun 03, 2023 Time Seen by Provider: 11:20 Daniel Cervantes is a 72 year old male with PMH HTN, HLD, CAD, AFib, COPD, BPH, Parkinson's, possible neurogenic bladder, suprapubic catheter, who presented with hematuria. He had a suprapubic catheter placed by a urologist in [place] in April. He was scheduled to have it "sized up" a week ago. They changed from a 12 wallisian to 18 wallisian. His family is concerned that they may have increased too quickly. He has also had some bleeding around the catheter insertion site. He denies any fevers. He denies abdominal pain. He has no other complaints or concerns. Subjective/Events-last exam His urine has cleared in his catheter. We attempted to transition off CBI, but his urine became pink again. He has no complaints and feels ready to go home. Objective Exam Vital Signs Vital Signs Date Time Temp Pulse Resp B/P (MAP) Pulse Ox O2 Delivery O2 Flow Rate FiO2 06/03/23 15:25 36.6 70 18 133/70 (91) 96 Room Air 0.00 Capillary Refill : Less Than 3 Seconds General Appearance: No Apparent Distress, Obese Respiratory: Lungs Clear, No Respiratory Distress Cardiovascular: Regular Rate, Rhythm, No Murmur Gastrointestinal: Normal Bowel Sounds, Soft Extremity: Normal Inspection, No Pedal Edema Neurologic/Psychiatric: Alert, No Motor/Sensory Deficits Skin: Normal Color, Warm/Dry Results/Procedures Lab Patient resulted labs reviewed. Imaging: Reviewed Imaging Report Assessment/Plan Assessment and Plan Assess & Plan/Chief Complaint Hematuria Suprapubic catheter Neurogenic bladder BPH Continue CBI Hold Eliquis, risks/benefits discussed Plan discussed with patient and family who are in agreement Will need outpatient follow up with Urology, possible cystoscopy Parkinson's HTN HLD CAD AFib Diagnosis/Problems Diagnosis/Problems (1) Hematuria Status: Acute (2) Suprapubic catheter Status: Acute (3) BPH (benign prostatic hyperplasia) Status: Acute (4) Neurogenic bladder Status: Acute (5) Parkinsons disease Status: Chronic (6) Obesity Status: Chronic (7) Afib Status: Chronic GE DOWNING MD Jun 03, 2023 16:24
[2023-06-04] MEDS: NS IV 1000 ML 1,000 ML IV SCH ×3 (02:49→23:00)
[2023-06-04 03:03] VITALS: BP 136/62
[2023-06-04 05:44] LABS: HEMOGLOBIN 12.2 g/dL (13.3-17.7)
[2023-06-04] MEDS: SENNOSIDES 8.6 MG (SENOKOT) TAB PO SCH ×2 (07:45→20:42)
[2023-06-04 07:47] VITALS: BP 139/85
[2023-06-04] MEDS: TRIM/SULFAMETH 160/800 (SEPTRA DS) TAB PO SCH ×2 (08:34→17:06)
[2023-06-04] MEDS: DOCUSATE SODIUM 100 MG (COLACE) CAP PO SCH (08:34)
[2023-06-04 11:29] VITALS: BP 130/75
--- NOTE | 2023-06-04 12:41 | Progress Note - Hospitalist ---
Subjective HPI/CC On Admission Date Seen by Provider: Jun 04, 2023 Daniel Cervantes is a 72 year old male with PMH HTN, HLD, CAD, AFib, COPD, BPH, Parkinson's, possible neurogenic bladder, suprapubic catheter, who presented with hematuria. He had a suprapubic catheter placed by a urologist in [place] in April. He was scheduled to have it "sized up" a week ago. They changed from a 12 azeri to 18 azeri. His family is concerned that they may have increased too quickly. He has also had some bleeding around the catheter insertion site. He denies any fevers. He denies abdominal pain. He has no other complaints or concerns. Subjective/Events-last exam Pt reports doing better today. Urine clearing up but was pinker after having a BM this morning. Objective Exam Vital Signs Vital Signs Date Time Temp Pulse Resp B/P (MAP) Pulse Ox O2 Delivery O2 Flow Rate FiO2 06/04/23 11:29 36.5 70 18 130/75 (93) 95 Room Air 06/03/23 15:25 0.00 Capillary Refill : Less Than 3 Seconds General Appearance: No Apparent Distress, Chronically ill, Obese Respiratory: Lungs Clear, No Respiratory Distress Cardiovascular: Regular Rate, Rhythm Neurologic/Psychiatric: Alert, Oriented x3 Results/Procedures Lab Laboratory Tests 06/04/23 05:31 Patient resulted labs reviewed. Imaging: Reviewed Imaging Report Assessment/Plan Assessment and Plan Assess & Plan/Chief Complaint Hematuria Suprapubic catheter Neurogenic bladder BPH DC CBI Resume Eliquis today and see if he tolerates- if bleeding returns will need to consider DC-ing for custodial Hgb stable Will need outpatient follow up with Urology, likely cystoscopy Parkinson's HTN HLD CAD AFib Resume home meds once med rec done LUZ MARIA PASCUAL MD Jun 04, 2023 12:41
[2023-06-04] MEDS ORDERED: GABA300C PO (13:25)
[2023-06-04] MEDS ORDERED: PANT40TA52 PO (13:25)
[2023-06-04] MEDS ORDERED: SERT-413 PO (13:26)
[2023-06-04] MEDS ORDERED: ENTA200T6 PO (13:26)
[2023-06-04] MEDS ORDERED: CELE200C PO (13:27)
[2023-06-04] MEDS ORDERED: METF750T45 PO (13:27)
[2023-06-04] MEDS ORDERED: LOSA50TA63 PO (13:36)
[2023-06-04] MEDS ORDERED: ATOR20TA66 PO (13:36)
[2023-06-04] MEDS ORDERED: FLDR.1T PO (13:37)
[2023-06-04] MEDS ORDERED: POTA-330 PO (13:38)
[2023-06-04] MEDS ORDERED: CETI10TA17 PO (13:38)
[2023-06-04] MEDS ORDERED: ACET-2650 PO (13:40)
[2023-06-04] MEDS ORDERED: FLUT16SP22 NS (13:40)
[2023-06-04] MEDS ORDERED: ALOG25TA2 PO (13:41)
[2023-06-04] MEDS ORDERED: FLUT1BLS9 IH (13:41)
[2023-06-04] MEDS ORDERED: APIX5TAB PO (13:41)
[2023-06-04] MEDS ORDERED: ALBU8.5H6 PO (13:42)
[2023-06-04] MEDS ORDERED: ACETAMINOPHEN ER 650 MG (ARTHRITIS) PO PRN (14:15)
[2023-06-04] MEDS ORDERED: FLUTICASONE NASAL SPRAY (FLONASE) 16 GM BTL NS PRN (14:15)
[2023-06-04] MEDS ORDERED: PATIENT MAY USE OWN MEDS, ALL MC SCH ×2 (14:15)
[2023-06-04] MEDS ORDERED: RT-ALBUTEROL HFA 8.5 GM INHALER IH PRN (15:15)
[2023-06-04 15:36] VITALS: BP_SYST 165; BP_SYST 171; BP_DIAS 81; BP_DIAS 90
--- NOTE | 2023-06-04 15:42 | Physical Therapy Evaluation ---
PT Evaluation-General Medical Diagnosis Admission Date Jun 01, 2023 at 19:03 Medical Diagnosis: hematuria Onset Date: Jun 04, 2023 Therapy Diagnosis Therapy Diagnosis: Gait deficit, strength deficit Precautions Precautions/Isolations: Fall Prevention, Standard Precautions Weight Bear Status Right Lower Extremity: Right Full Weight Bearing Left Lower Extremity: Left Full Weight Bearing Referral Physician: Dr. Nagy Reason for Referral: Evaluation/Treatment Medical History Reviewed History: Yes Social History Home: Single Level Current Living Status: Spouse Entry Into Home: Stairs With Railing PT Steps Into Home: 3 Prior Prior Level of Function SCALE: Activities may be completed with or without assistive devices. 1-Waxqqyfyds-jouqlwu completes the activity by him/herself with no assistance from a helper. 5-Set-up or Clean-up Assistance-helper sets up or cleans up; patient completes activity. [place] assists only prior to or following the activity. 4-Supervision or Touching Assistance-helper provides verbal cues and/or touching/steadying and/or contact guard assistance as patient completes activity. Assistance may be provided throughout the activity or intermittently. 3-Partial/Moderate Assistance-helper does LESS THAN HALF the effort. [place] lifts, holds or supports trunk or limbs, but provides less than half the effort. 2-Substantial/Maximal Assistance-helper does MORE THAN HALF the effort. [place] lifts or holds trunk or limbs and provides more than half the effort. 1-Ujwbxbrjx-oifphs does ALL the effort. Patient does none of the effort to complete the activity. Or, the assistance of 2 or more helpers is required for the patient to complete the activity. If activity was not attempted, code reason: 7-Patient Refused. 9-Not Applicable-not attempted and the patient did not perform the activity before the current illness, exacerbation or injury. 10-Not Attempted due to Environmental Limitations-(lack of equipment, weather restraints, etc.). 88-Not Attempted due to Medical Conditions or Safety Concerns. Bed Mobility: 6 Transfers (B,C,W/C): 6 Gait: 6 Stairs: 6 Indoor Mobility (Ambulation): Independent Stairs: Needed Some Help Prior Devices Use: Motorized scooter, Walker PT Evaluation-Current Subjective Patient lying supine in bed upon PT arrival, agreeable to treatment. Patient rates pain at 0/10 currently. Objective Patient Orientation: Person, Place, Time, Situation Attachments: IV ROM/Strength ROM Lower Extremities WFLs BLEs all planes Strength Lower Extremities 4-/5 BLEs all planes Sensory Vision: Functional Hearing: Functional Sensation Right Lower Extremit: Intact Sensation Left Lower Extremity: Intact Transfers Roll Left to Right (QC): 4 Sit to Lying (QC): 4 Lying to Sitting/Side of Bed(Q: 4 Sit to Stand (QC): 4 Chair/Wzt-cq-Tuylx Xfer(QC): 4 Gait Does the Patient Walk?: Yes Mode of Locomotion: Walk Anticipated Mode of Locomotion: Walk Walk 10 feet (QC): 4 Walk 50 ft with 2 Turns(QC): 4 Walk 150 ft (QC): 4 Distance: 350' Gait Assistive Device: FWW Balance Sitting Static: Fair Sitting Dynamic: Fair Standing Static: Fair Standing Dynamic: Fair Assessment/Needs Patient tolerated treatment well. Demonstrates SBA/CGA for all observed bed mobility and transfers. Patient ambulates 350 feet with FWW, with SBA and verbal cues for safety, posture and conservation of energy. Patient in chair post treatment with all needs met, nursing notified, call light in hand. Rehab Potential: Fair PT Longterm Goals Longterm Goals PT Longterm Goals Time Frame: Jul 07, 2023 Roll Left & Right (QC): 6 Sit to Lying (QC): 6 Lying-Sitting on Side/Bed(QC): 6 Sit to Stand (QC): 6 Chair/Ciu-cv-Okdjr Xfer(QC): 6 Toilet Transfer (QC): 6 Does the Patient Walk: Yes Walk 10 feet (QC): 6 Walk 50ft with 2 Turns (QC): 6 Walk 150 ft (QC): 6 1 Step (curb) (QC): 4 4 Steps (QC): 4 12 Steps (QC): 4 PT Plan Problem List Problem List: Activity Tolerance, Functional Strength, Safety, Balance, Gait, Transfer, Bed Mobility, ROM Treatment/Plan Treatment Plan: Continue Plan of Care Treatment Plan: Bed Mobility, Education, Functional Activity Lauri, Functional Strength, Group Therapy, Gait, Safety, Therapeutic Exercise, Transfers Treatment Duration: Jul 12, 2023 Frequency: 6 times per week Estimated Hrs Per Day: .25 hour per day Patient and/or Family Agrees t: Yes Safety Risks/Education Patient Education: Gait Training, Transfer Techniques Teaching Recipient: Patient Teaching Methods: Demonstration, Discussion Response to Teaching: Verbalize Understanding, Return Demonstration Time Time In: 1515 Time Out: 1530 DATE: Jun 04, 2023 Total Billed Treatment Time: 15 Total Billed Treatment Visit, ANDREW RIOS PT Jun 04, 2023 15:42
[2023-06-04] MEDS: GABAPENTIN 300 MG (NEURONTIN) CAP PO SCH ×2 (17:06→20:44)
[2023-06-04] MEDS: [UNRECOGNIZED DRUG - REMARK] PO SCH ×2 (17:07→20:45)
[2023-06-04] MEDS: SINEMET 25/100 (CARBIDOPA/LEVODOPA) TAB PO SCH ×2 (17:08→20:45)
[2023-06-04 20:23] VITALS: BP 126/79
[2023-06-04] MEDS: polyethylene glycoL POWDER 17 GM (MIRALAX) PACK PO PRN (20:42)
[2023-06-04] MEDS: APIXABAN 5 MG TABLET PO SCH (20:44)
[2023-06-04] MEDS ORDERED: FLUTICASONE PROPION IH SCH (21:00)
[2023-06-04] MEDS ORDERED: [UNRECOGNIZED DRUG - OTHER] IH SCH (21:00)
[2023-06-04 23:21] VITALS: BP 173/83
[2023-06-05 03:31] VITALS: BP 157/80
[2023-06-05 06:04] LABS: HEMATOCRIT 38 % (40-54); HEMOGLOBIN 11.8 g/dL (13.3-17.7); MEAN CORPUSCULAR HEMOGLOBIN 27 pg (25-34); MEAN CORPUSCULAR HGB CONC 31 g/dL (32-36); MEAN CORPUSCULAR VOLUME 86 fL (80-99); PLATELET COUNT 199 10^3/uL (130-400); WHITE BLOOD COUNT 5.8 10^3/uL (4.3-11.0)
[2023-06-05 06:30] LABS: CALCIUM 8.9 MG/DL (8.5-10.1); CREATININE SERUM 0.86 MG/DL (0.60-1.30); POTASSIUM 3.5 MMOL/L (3.6-5.0)
[2023-06-05 07:08] VITALS: BP 169/79
[2023-06-05] MEDS: NS IV 1000 ML 1,000 ML IV SCH ×2 (09:25→20:07)
[2023-06-05] MEDS: FLUTICASONE/VILANTEROL 100 MCG 14'S (BREO) IH SCH ×2 (09:40→09:43)
[2023-06-05] MEDS: SENNOSIDES 8.6 MG (SENOKOT) TAB PO SCH ×2 (09:58→20:06)
[2023-06-05] MEDS: TRIM/SULFAMETH 160/800 (SEPTRA DS) TAB PO SCH ×2 (09:58→17:10)
[2023-06-05] MEDS: FLUDROCORTISONE 0.1 MG (FLORINEF) TAB PO SCH (09:59)
[2023-06-05] MEDS: APIXABAN 5 MG TABLET PO SCH (09:59)
[2023-06-05] MEDS: GABAPENTIN 300 MG (NEURONTIN) CAP PO SCH ×4 (10:00→20:06)
[2023-06-05] MEDS: SERTRALINE 50 MG (ZOLOFT) TABLET PO SCH (10:00)
[2023-06-05] MEDS: [UNRECOGNIZED DRUG - REMARK] PO SCH (10:01)
[2023-06-05] MEDS: SINEMET 25/100 (CARBIDOPA/LEVODOPA) TAB PO SCH ×4 (10:01→20:07)
[2023-06-05] MEDS: LOSARTAN 50 MG (COZAAR) TAB PO SCH (10:02)
[2023-06-05] MEDS: [UNRECOGNIZED DRUG - REMARK] PO SCH ×4 (10:03→20:08)
[2023-06-05] MEDS: [UNRECOGNIZED DRUG - REMARK] PO SCH (10:04)
[2023-06-05] MEDS: PANTOPRAZOLE 40 MG (PROTONIX) TAB PO SCH (10:07)
[2023-06-05 11:00] VITALS: BP 154/81
[2023-06-05] MEDS ORDERED: DOCUSATE SODIUM 100 MG (COLACE) CAP PO SCH (12:00)
[2023-06-05] MEDS: polyethylene glycoL POWDER 17 GM (MIRALAX) PACK PO PRN (12:30)
--- NOTE | 2023-06-05 13:14 | Progress Note - Hospitalist ---
Subjective HPI/CC On Admission Date Seen by Provider: Jun 05, 2023 Daniel Cervantes is a 72 year old male with PMH HTN, HLD, CAD, AFib, COPD, BPH, Parkinson's, possible neurogenic bladder, suprapubic catheter, who presented with hematuria. He had a suprapubic catheter placed by a urologist in [place] in April. He was scheduled to have it "sized up" a week ago. They changed from a 12 kiswahili to 18 kiswahili. His family is concerned that they may have increased too quickly. He has also had some bleeding around the catheter insertion site. He denies any fevers. He denies abdominal pain. He has no other complaints or concerns. Subjective/Events-last exam Pt reports doing better today but urine is bloody again. Discussed with him and his daughter the risks of continuing vs stopping anticoagulation. Plan is to try and getting bleeding to subside off anticoagulation and get in soon to a urologist for cystoscopy. They are calling the [place] to try to get approval for a urologist sooner and I have reached out to the urologist in [place]. Objective Exam Vital Signs Vital Signs Date Time Temp Pulse Resp B/P (MAP) Pulse Ox O2 Delivery O2 Flow Rate FiO2 06/05/23 11:00 36.4 72 18 154/81 (105) 95 Room Air 06/05/23 03:31 0.00 0.00 Capillary Refill : Less Than 3 Seconds General Appearance: No Apparent Distress, Chronically ill Respiratory: Lungs Clear, No Respiratory Distress Cardiovascular: Regular Rate, Rhythm, No Murmur Neurologic/Psychiatric: Alert, Oriented x3 Results/Procedures Lab Laboratory Tests 06/05/23 05:20 Patient resulted labs reviewed. Imaging: Reviewed Imaging Report Assessment/Plan Assessment and Plan Assess & Plan/Chief Complaint Hematuria Suprapubic catheter Neurogenic bladder BPH DC CBI DC Eliquis as bleeding resumed Hgb stable Will need outpatient follow up with Urology, likely cystoscopy Referral placed to Dr Acosta Parkinson's HTN HLD CAD AFib Continue home meds LUZ MARIA PASCUAL MD Jun 05, 2023 13:13
--- NOTE | 2023-06-05 14:11 | Physical Therapy Daily Note ---
PT Daily Note-Current Subjective Patient sitting in chair upon PT arrival, agreeable to treatment. Patient rates pain at 0/10 currently Pain Section J - Health Conditions 1. Rarely or not at all 2. Occasionally 3. Frequently 4. Almost constantly 8. Unable to answer Pain Effect on Sleep: 1 Pain Interference with Therapy: 1 Pain Interference w/Day-to-Day: 1 Mental Status Patient Orientation: Person, Time, Situation Transfers SCALE: Activities may be completed with or without assistive devices. 5-Muhlannktc-yjtcigw completes the activity by him/herself with no assistance from a helper. 5-Set-up or Clean-up Assistance-helper sets up or cleans up; patient completes activity. [place] assists only prior to or following the activity. 4-Supervision or Touching Assistance-helper provides verbal cues and/or touching/steadying and/or contact guard assistance as patient completes activity. Assistance may be provided throughout the activity or intermittently. 3-Partial/Moderate Assistance-helper does LESS THAN HALF the effort. [place] lifts, holds or supports trunk or limbs, but provides less than half the effort. 2-Substantial/Maximal Assistance-helper does MORE THAN HALF the effort. [place] lifts or holds trunk or limbs and provides more than half the effort. 5-Wudxajexy-iwdqop does ALL the effort. Patient does none of the effort to complete the activity. Or, the assistance of 2 or more helpers is required for the patient to complete the activity. If activity was not attempted, code reason: 7-Patient Refused. 9-Not Applicable-not attempted and the patient did not perform the activity before the current illness, exacerbation or injury. 10-Not Attempted due to Environmental Limitations-(lack of equipment, weather restraints, etc.). 88-Not Attempted due to Medical Conditions or Safety Concerns. Sit to Stand (QC): 4 Chair/Gzs-ea-Tkzgo Xfer(QC): 4 Toilet Transfer (QC): 4 Weight Bearing Right Lower Extremity: Right Full Weight Bearing Left Lower Extremity: Left Full Weight Bearing Gait Training Does the Patient Walk?: Yes Distance: 150' Walk 10 feet (QC): 4 Walk 50 ft with 2 Turns(QC): 4 Walk 150 ft (QC): 4 Gait Assistive Device: FWW Assessment Current Status: Fair Progress Patient tolerated treatment well. Demonstrates SBA/CGA for all observed bed mobility and transfers. Patient ambulates 150 feet with FWW, with SBA and verbal cues for safety, posture and conservation of energy. Patient requested treatment cut short due to needing the BR. Patient in BR post treatment with all needs met, nursing notified, call light in reach. PT Bond Runner Goals Prison Goals PT Bond Runner Goals Time Frame: Jul 07, 2023 Roll Left & Right (QC): 6 Sit to Lying (QC): 6 Lying-Sitting on Side/Bed(QC): 6 Sit to Stand (QC): 6 Chair/Buy-xe-Jadom Xfer(QC): 6 Toilet Transfer (QC): 6 Does the Patient Walk: Yes Walk 10 feet (QC): 6 Walk 50ft with 2 Turns (QC): 6 Walk 150 ft (QC): 6 1 Step (curb) (QC): 4 4 Steps (QC): 4 12 Steps (QC): 4 PT Plan Treatment/Plan Treatment Plan: Continue Plan of Care Treatment Plan: Bed Mobility, Education, Functional Activity Lauri, Functional Strength, Group Therapy, Gait, Safety, Therapeutic Exercise, Transfers Treatment Duration: Jul 12, 2023 Frequency: 6 times per week Estimated Hrs Per Day: .25 hour per day Patient and/or Family Agrees t: Yes Safety Risks/Education Patient Education: Gait Training, Transfer Techniques Teaching Recipient: Patient Teaching Methods: Demonstration, Discussion Response to Teaching: Verbalize Understanding, Return Demonstration Time Time In: 1041 Time Out: 1051 DATE: Jun 05, 2023 Total Billed Treatment Time: 10 Total Billed Treatment Visit, GT ANDREW MUNIZ PT Jun 05, 2023 14:11
[2023-06-05 16:15] VITALS: BP 195/92
[2023-06-05 20:00] VITALS: BP 150/75
[2023-06-06 00:28] VITALS: BP 168/91
[2023-06-06 03:11] VITALS: BP 173/112
[2023-06-06 03:15] VITALS: BP 168/90
[2023-06-06] MEDS: NS IV 1000 ML 1,000 ML IV SCH (05:21)
[2023-06-06] MEDS: FLUTICASONE/VILANTEROL 100 MCG 14'S (BREO) IH SCH (07:39)
[2023-06-06 08:00] VITALS: BP 133/84
[2023-06-06 08:10] LABS: HEMATOCRIT 42 % (40-54); MEAN CORPUSCULAR HEMOGLOBIN 27 pg (25-34); MEAN CORPUSCULAR HGB CONC 31 g/dL (32-36); MEAN CORPUSCULAR VOLUME 87 fL (80-99); PLATELET COUNT 241 10^3/uL (130-400); WHITE BLOOD COUNT 7.5 10^3/uL (4.3-11.0)
[2023-06-06] MEDS: [UNRECOGNIZED DRUG - REMARK] PO SCH (08:14)
[2023-06-06] MEDS: SINEMET 25/100 (CARBIDOPA/LEVODOPA) TAB PO SCH (08:14)
[2023-06-06] MEDS: GABAPENTIN 300 MG (NEURONTIN) CAP PO SCH (08:15)
[2023-06-06] MEDS: PANTOPRAZOLE 40 MG (PROTONIX) TAB PO SCH (08:16)
[2023-06-06] MEDS: FLUDROCORTISONE 0.1 MG (FLORINEF) TAB PO SCH (08:16)
[2023-06-06] MEDS: SERTRALINE 50 MG (ZOLOFT) TABLET PO SCH (08:17)
[2023-06-06] MEDS: LOSARTAN 50 MG (COZAAR) TAB PO SCH (08:19)
[2023-06-06] MEDS: [UNRECOGNIZED DRUG - REMARK] PO SCH (08:19)
[2023-06-06] MEDS: [UNRECOGNIZED DRUG - REMARK] PO SCH (08:20)
[2023-06-06] MEDS: SENNOSIDES 8.6 MG (SENOKOT) TAB PO SCH (08:21)
[2023-06-06 08:28] LABS: CALCIUM 9.1 MG/DL (8.5-10.1); CREATININE SERUM 0.89 MG/DL (0.60-1.30); POTASSIUM 3.5 MMOL/L (3.6-5.0)
[2023-06-06] MEDS ORDERED: APIX5TAB PO (10:15)
[2023-06-06] MEDS ORDERED: FINA5TAB6 PO (10:15)
--- NOTE | 2023-06-06 10:16 | Discharge Inst-Simple/Standard ---
Discharge Inst-Standard Discharge Medications New, Converted or Re-Newed RX: Transmitted to Pharmacy Patient Instructions/Follow Up Plan of Care/Instructions/FU: Please continue to take your medications as written. Please follow up with your primary care doctor to follow up this hospital stay. Activity as Tolerated: Yes Discharge Diet: No Restrictions Return to The Hospital For: Chest pain, blood in your urine, decreased urine output, shortness of breath, fever, weakness, if you feel you are getting worse. LUZ MARIA PASCUAL MD Jun 06, 2023 10:16
--- NOTE | 2023-06-06 10:18 | Discharge Summary ---
Diagnosis/Chief Complaint Date of Admission Jun 01, 2023 at 19:03 Date of Discharge Discharge Date: Jun 06, 2023 Admission Diagnosis Hematuria Primary Care Atif Islas DO Discharge Diagnosis (1) Hematuria Status: Acute (2) Suprapubic catheter Status: Acute (3) BPH (benign prostatic hyperplasia) Status: Acute (4) Neurogenic bladder Status: Acute (5) Parkinsons disease Status: Chronic (6) Obesity Status: Chronic (7) Afib Status: Chronic Discharge Summary Discharge Physical Exam Allergies: Coded Allergies: ceftriaxone (Verified Allergy, Unknown, 11/08/22) codeine (Verified Allergy, Unknown, 11/08/22) Vitals & I&Os Vital Signs Date Time Temp Pulse Resp B/P (MAP) Pulse Ox O2 Delivery O2 Flow Rate FiO2 06/06/23 08:00 36.0 73 18 133/84 (100) 95 Room Air 06/05/23 03:31 0.00 0.00 Hospital Course Labs (last 24 hrs) Laboratory Tests 06/06/23 08:08: White Blood Count 7.5, Red Blood Count 4.84, Hemoglobin 13.0L, Hematocrit 42, Mean Corpuscular Volume 87, Mean Corpuscular Hemoglobin 27, Mean Corpuscular Hemoglobin Concent 31L, Red Cell Distribution Width 16.7H, Platelet Count 241, Mean Platelet Volume 9.0, Sodium Level 139, Potassium Level 3.5L, Chloride Level 106, Carbon Dioxide Level 25, Anion Gap 8, Blood Urea Nitrogen 9, Creatinine 0.89, Estimat Glomerular Filtration Rate 90, BUN/Creatinine Ratio 10, Glucose Level 118H, Calcium Level 9.1 Microbiology 06/03/23 Urine Culture - Final, Complete NO GROWTH Patient resulted labs reviewed. Pending Labs Laboratory Tests 06/06/23 08:08: White Blood Count 7.5, Red Blood Count 4.84, Hemoglobin 13.0, Hematocrit 42, Mean Corpuscular Volume 87, Mean Corpuscular Hemoglobin 27, Mean Corpuscular Hemoglobin Concent 31, Red Cell Distribution Width 16.7, Platelet Count 241, Mean Platelet Volume 9.0, Sodium Level 139, Potassium Level 3.5, Chloride Level 106, Carbon Dioxide Level 25, Anion Gap 8, Blood Urea Nitrogen 9, Creatinine 0.89, Estimat Glomerular Filtration Rate 90, BUN/Creatinine Ratio 10, Glucose Le pallavi 118, Calcium Level 9.1 Imaging: Reviewed Imaging Report Discharge Home Medications: Active Scripts Active Finasteride 5 Mg Tablet 5 Mg PO DAILY Eliquis (Apixaban) 5 Mg Tablet 5 Mg PO BID 30 Days Hold until you are seen by urology and your PCP. Reported Ventolin Hfa (Albuterol Sulfate) 90 Mcg Hfa.aer.ad 2 Puff PO Q8H PRN 1 PUFF = 90 MCG Alogliptin (Alogliptin Benzoate) 25 Mg Tablet 25 Mg PO DAILY Wixela 250-50 Inhub (Fluticasone Propion/Salmeterol) 250 Mcg-50 Mcg/Dose Blst.w.dev 1 Each IH BID Fluticasone Propionate 50 Mcg/Actuation Hassell.susp 1 Hassell NS DAILY PRN Tylenol Arthritis (Acetaminophen) 650 Mg Tablet.er 650 Mg PO Q8H PRN Cetirizine HCl 10 Mg Tablet 10 Mg PO DAILY Potassium Chloride 20 Meq Tablet.er 20 Meq PO DAILY Fludrocortisone Acetate 0.1 Mg Tab 0.1 Mg PO DAILY Atorvastatin Calcium 20 Mg Tablet 10 Mg PO HS TAKES 1/2 OF (20MG) TABS Losartan Potassium 50 Mg Tablet 50 Mg PO DAILY Metformin HCl ER (Metformin HCl) 750 Mg Tab.er.24h 750 Mg PO BID Celebrex (Celecoxib) 200 Mg Capsule 200 Mg PO DAILY Sertraline HCl 50 Mg Tablet 50 Mg PO DAILY Entacapone 200 Mg Tablet 200 Mg PO QID Pantoprazole Sodium 40 Mg Tablet.dr 40 Mg PO DAILY Neurontin (Gabapentin) 300 Mg Capsule 600 Mg PO QID TAKES 2 (300MG) CAPS Sinemet 25-100 mg Tablet (Carbidopa/Levodopa) 25 Mg-100 Mg Tablet 2 Each PO QID Mag-Oxide (Magnesium Oxide) 200 Mg Magnesium Tablet 420 Mg PO 1700 Colace (Docusate Sodium) 100 Mg Capsule 100 Mg PO 1200 Instructions to patient/family Please see electronic discharge instructions given to patient. LUZ MARIA PASCUAL MD Jun 06, 2023 10:18
[2023-06-06 11:10] VITALS: BP 133/84
== END 2023-06-06 11:10 | disposition home or self-care (01) ==
LOC: EDUNIT# 11:46 → ER 11:47 → 4TH 19:03 → UNDOADMOB 19:03 → 4TH 19:28 → UNDODISOB 06-06 11:10
PROVIDERS: ADMIT Internal Medicine; ATTEND Internal Medicine
DX: R31.9 Hematuria, unspecified (principal); N40.0 Benign prostatic hyperplasia without lower urinary tract symptoms; N31.9 Neuromuscular dysfunction of bladder, unspecified; E66.9 Obesity, unspecified; G20 Parkinson's disease; N39.0 Urinary tract infection, site not specified; I25.10 Atherosclerotic heart disease of native coronary artery without angina pectoris; I48.91 Unspecified atrial fibrillation; I10 Essential (primary) hypertension; E78.5 Hyperlipidemia, unspecified; Z96.0 Presence of urogenital implants; Z87.891 Personal history of nicotine dependence
CPT/HCPCS: 36415; 51702; 74177; 80048; 80053; 81000; 85014; 85018; 85025; 85027; 85610; 85730; 87088; 94640; 96361; G0378

== ENCOUNTER 2023-07-25 05:44 | Outpatient (CLI) | payer OTHER ==
[~2023-07-25] VITALS: Ht 177.8 cm; Wt 111.5 kg
[~2023-07-25 05:44] MED LIST changes: +ACET-2650 PO; +ALBU8.5H6 PO; +ALFU10TA12 PO; +ALOG25TA2 PO; +APIX5TAB PO; +ATOR20TA66 PO; +ATOR80TA76 PO; +CARB-300 PO; +CARB1TAB40 PO; +CARB1TAB41 PO; +CELE-63 PO; +CELE200C PO; +CETI10TA17 PO; +CETI10TA24 PO; +DIGO125T3 PO; +DOCU-143 PO; +ENTA200T6 PO; +FINA5TAB6 PO; +FLDR.1T PO; +FLUT16SP22 NS; +FLUT1BLS9 IH; +FLUT1DIS26 IH; +GABA300C PO; +GABA300S3 PO; +GBPN600T PO; +LOSA50TA63 PO; +MAGN200T8 PO; +METF-398 PO; +METF750T45 PO; +PANT20TA2 PO; +PANT40TA2 PO; +PANT40TA52 PO; +POTA-177 PO; +POTA-330 PO; +SERT-413 PO
[2023-07-25] MEDS ORDERED: METF750T45 PO (11:46)
[2023-07-25] MEDS ORDERED: ALOG12.52 PO (11:46)
[2023-07-25] MEDS ORDERED: ATOR80TA76 PO (11:46)
== END 2023-07-25 12:00 | disposition home or self-care (01) ==
LOC: PREOP 05:44
PROVIDERS: ATTEND Surgery
DX: Z01.818 Encounter for other preprocedural examination (principal)

== ENCOUNTER 2023-08-17 15:10 | Emergency (ER) | payer OTHER ==
[~2023-08-17] VITALS: Ht 180 cm; Wt 100.0 kg
[~2023-08-17 15:10] MED LIST changes: +ALOG12.52 PO; -CELE-63 PO; +CELE-91 PO
--- NOTE | 2023-08-17 15:45 | ED GI ---
General Chief Complaint: Rect Problems Stated Complaint: BLOODY STOOL, WEAKNESS, FAINTING Source of Information: Patient Exam Limitations: No Limitations History of Present Illness Date Seen by Provider: Aug 17, 2023 Time Seen by Provider: 15:30 Initial Comments 72-year-old male presents to the ER with complaint of bright red rectal bleeding since 2 AM this morning. States that he had approximately 4-5 episodes total, 2 large episodes. States that he feels weak and tired, states that he almost passed out. He denies chest pain, reports shortness of air, but states that this is chronic due to his COPD, denies change in his shortness of air. Denies abdominal pain, nausea, vomiting. He had a colonoscopy [address] Patterson, they found 2 polyps and he had a biopsy. He states that since then he has had constipation, states that his stool has been hard. It was the worst yesterday. He has been taking a stool softener, states that today his stool has been soft, and slightly runny. Allergies and Home Medications Allergies Coded Allergies: ceftriaxone (Verified Allergy, Unknown, 07/25/23) codeine (Verified Allergy, Unknown, 07/25/23) Patient Home Medication List Home Medication List Reviewed: Yes Acetaminophen (Tylenol Arthritis) 650 Mg Tablet.er, 650 MG PO Q8H PRN for PAIN- MILD (1-4), (Reported) Entered as Reported by: KARIE KRAMER on 06/04/23 1340 Albuterol Sulfate (Ventolin Hfa) 90 Mcg Hfa.aer.ad, 2 PUFF PO Q8H PRN for SHORTNESS OF BREATH, (Reported) Entered as Reported by: KARIE KRAMER on 06/04/23 1342 Alogliptin Benzoate (Alogliptin) 12.5 Mg Tablet, 12.5 MG PO DAILY, (Reported) Entered as Reported by: Kristen Daniel on 07/25/23 1146 Apixaban (Eliquis) 5 Mg Tablet, 5 MG PO BID Prescribed by: LUZ MARIA PASCUAL on 06/06/23 1015 Atorvastatin Calcium (Atorvastatin Calcium) 80 Mg Tablet, 80 MG PO DAILY, (Reported) Entered as Reported by: Kristen Daniel on 07/25/23 1146 Carbidopa/Levodopa (Sinemet 25-100 mg Tablet) 25 Mg-100 Mg Tablet, 2 EACH PO QID, (Reported) Entered as Reported by: NARAYAN LIN on 06/02/23 0909 Celecoxib (Celebrex) 200 Mg Capsule, 200 MG PO DAILY, (Reported) Entered as Reported by: KARIE KRAMER on 06/04/23 1327 Cetirizine HCl (Cetirizine HCl) 10 Mg Tablet, 10 MG PO DAILY, (Reported) Entered as Reported by: KARIE KRAMER on 06/04/23 1338 Docusate Sodium (Colace) 100 Mg Capsule, 100 MG PO 1200, (Reported) Entered as Reported by: NARAYAN LIN on 06/02/23 0908 Entacapone (Entacapone) 200 Mg Tablet, 200 MG PO QID, (Reported) Entered as Reported by: KARIE KRAMER on 06/04/23 1326 Finasteride (Finasteride) 5 Mg Tablet, 5 MG PO DAILY Prescribed by: LUZ MARIA PASCUAL on 06/06/23 1015 Fludrocortisone Acetate (Fludrocortisone Acetate) 0.1 Mg Tab, 0.1 MG PO DAILY, (Reported) Entered as Reported by: KARIE KRAMER on 06/04/23 1337 Fluticasone Propion/Salmeterol (Wixela 250-50 Inhub) 250 Mcg-50 Mcg/Dose B lst.w.dev, 1 EACH IH BID, (Reported) Entered as Reported by: KARIE KRAMER on 06/04/23 1341 Fluticasone Propionate (Fluticasone Propionate) 50 Mcg/Actuation [place].susp, 1 SPRAY NS DAILY PRN for CONGESTION, (Reported) Entered as Reported by: KARIE KRAMER on 06/04/23 1340 Gabapentin (Neurontin) 300 Mg Capsule, 600 MG PO QID, (Reported) Entered as Reported by: KARIE KRAMER on 06/04/23 1325 Losartan Potassium (Losartan Potassium) 50 Mg Tablet, 50 MG PO DAILY, (Reported) Entered as Reported by: KARIE KRAMER on 06/04/23 1336 Magnesium Oxide (Mag-Oxide) 200 Mg Magnesium Tablet, 420 MG PO 1700, (Reported) Entered as Reported by: NARAYAN LIN on 06/02/23 0908 Metformin HCl (Metformin HCl ER) 750 Mg Tab.er.24h, 750 MG PO DAILY, (Reported) Entered as Reported by: Kristen Daniel on 07/25/23 1146 Pantoprazole Sodium (Pantoprazole Sodium) 40 Mg Tablet.dr, 40 MG PO DAILY, (Reported) Entered as Reported by: KARIE KRAMER on 06/04/23 1325 Potassium Chloride (Potassium Chloride) 20 Meq Tablet.er, 20 MEQ PO DAILY, (Reported) Entered as Reported by: KARIE KRAMER on 06/04/23 1338 Sertraline HCl (Sertraline HCl) 50 Mg Tablet, 50 MG PO DAILY, (Reported) Entered as Reported by: KARIE KRAMER on 06/04/23 1326 Review of Systems Review of Systems Constitutional: see HPI Past Lwtxmaf-Dmrgqf-Annneg Hx Patient Social History Tobacco Use?: No Use of E-Cig and/or Vaping dev: No Substance use?: No Alcohol Use?: No Pt feels they are or have been: No Seasonal Allergies Seasonal Allergies: Yes Past Medical History Surgery/Hospitalization HX: a fib, pacemaker,htn,parkinsons Surgeries: Yes (SP CATH, BACK, RECTAL FISTULA) Cardiac, Coronary Stent, Defibrillator, Orthopedic, Pacemaker Respiratory: Yes COPD Currently Using BIPAP: Yes Cardiac: Yes ([place] WITH STENT X 1; PACEMAKER/DEFIBRILLATOR; CHF) Atrial Fibrillation, Cardiomyopathy, Chronic Edema/Swelling, Coronary Artery Disease, Heart Attack, High Cholesterol, Hypertension Neurological: Yes Neuropathy, Parkinson's Disease Sexually Transmitted Disease: No HIV/AIDS: No Genitourinary: Yes (SP CATHETER) Prostate Problems, UTI-Chronic Gastrointestinal: Yes Gastroesophageal Reflux, Liver Disease/Jaundice, Chronic Constipation Musculoskeletal: Yes (S/P BACK SURGERY;LEFT DISTAL FIBULA FX 2021--NO SURGERY) Arthritis, Chronic Back Pain, Fractures Endocrine: Yes (OBESITY) Diabetes, Non-Insulin dep HEENT: No Loss of Vision: Bilateral Hearing Impairment: Denies Cancer: No Psychosocial: Yes Anxiety, Depression Integumentary: No Blood Disorders: No Adverse Reaction/Blood Tranf: No Family Medical History No Pertinent Family Hx SOCIAL HISTORY: -SMOKED TEEN, QUIT AGE 17 -ETOH USE TEEN, QUIT AGE 17 -DENIES DRUG USE PAST SURGICAL HISTORY: -BACK SURGERY X 1 -CARDIAC CATH WITH STENT X 1 -PACEMAKER/DEFIBRILLATOR Physical Exam Vital Signs Vital Signs - First Documented 08/17/23 08/17/23 15:40 17:18 Temp 36.7 Pulse 83 Resp 20 B/P (MAP) 129/76 (93) Pulse Ox 99 O2 Delivery Room Air Capillary Refill : Height/Weight/BMI Height: '" Weight: lbs. oz. kg; 35.27 BMI Method: General Appearance: WD/WN, no apparent distress Neck: supple, normal inspection Respiratory: lungs clear, normal breath sounds, no respiratory distress, no accessory muscle use Cardiovascular: regular rate, rhythm Gastrointestinal: normal bowel sounds, non tender, soft Genital/Rectal: heme positive stool, other (Internal hemorrhoid palpated) Extremities: normal range of motion, normal inspection Neurologic/Psychiatric: alert, normal mood/affect Skin: normal color, warm/dry Progress/Results/Core Measures Results/Orders Lab Results Laboratory Tests Test 08/17/23 15:35 Range/Units White Blood Count 10.4 4.3-11.0 10^3/uL Red Blood Count 4.31 4.30-5.52 10^6/uL Hemoglobin 11.5 L 13.3-17.7 g/dL Hematocrit 38 L 40-54 % Mean Corpuscular Volume 88 80-99 fL Mean Corpuscular Hemoglobin 27 25-34 pg Mean Corpuscular Hemoglobin Concent 31 L 32-36 g/dL Red Cell Distribution Width 15.0 H 10.0-14.5 % Platelet Count 273 130-400 10^3/uL Mean Platelet Volume 9.3 9.0-12.2 fL Immature Granulocyte % (Auto) 0 % Neutrophils (%) (Auto) 74 42-75 % Lymphocytes (%) (Auto) 17 12-44 % Monocytes (%) (Auto) 7 0-12 % Eosinophils (%) (Auto) 1 0-10 % Basophils (%) (Auto) 1 0-10 % Neutrophils # (Auto) 7.6 1.8-7.8 10^3/uL Lymphocytes # (Auto) 1.8 1.0-4.0 10^3/uL Monocytes # (Auto) 0.8 0.0-1.0 10^3/uL Eosinophils # (Auto) 0.1 0.0-0.3 10^3/uL Basophils # (Auto) 0.1 0.0-0.1 10^3/uL Immature Granulocyte # (Auto) 0.0 0.0-0.1 10^3/uL Prothrombin Time 17.3 H 12.2-14.7 SEC INR Comment 1.4 0.8-1.4 Activated Partial Thromboplast Time 36 H 24-35 SEC Sodium Level 141 135-145 MMOL/L Potassium Level 4.7 3.6-5.0 MMOL/L Chloride Level 108 H 98-107 MMOL/L Carbon Dioxide Level 23 21-32 MMOL/L Anion Gap 10 5-14 MMOL/L Blood Urea Nitrogen 20 H 7-18 MG/DL Creatinine 1.00 0.60-1.30 MG/DL Estimat Glomerular Filtration Rate 79 BUN/Creatinine Ratio 20 Glucose Level 129 H 70-105 MG/DL Calcium Level 9.2 8.5-10.1 MG/DL Corrected Calcium 9.4 8.5-10.1 MG/DL Total Bilirubin 0.4 0.1-1.0 MG/DL Aspartate Amino Transf (AST/SGOT) 12 5-34 U/L Alanine Aminotransferase (ALT/SGPT) < 6 0-55 U/L Alkaline Phosphatase 86 40-136 U/L Total Protein 6.6 6.4-8.2 GM/DL Albumin 3.7 3.2-4.5 GM/DL My Orders Orders - VICKI CORTEZ [employer] Cbc And Automated Diff (08/17/23 15:38) Ekg Tracing (08/17/23 15:38) Comprehensive Metabolic Panel (08/17/23 15:38) Protime With Inr (08/17/23 15:38) Partial Thromboplastin Time (08/17/23 15:38) Ed Iv/Invasive Line Start (08/17/23 15:38) Vital Signs/I&O 08/17/23 08/17/23 15:40 17:18 Temp 36.7 36.7 Pulse 83 68 Resp 20 20 B/P (MAP) 129/76 (93) 106/72 Pulse Ox 99 99 O2 Delivery Room Air Progress Progress Note : Progress Note Patient seen and evaluated, resting comfortably in bed, no acute distress. On exam and symptoms, work-up initiated including CBC, CMP, coags. Will perform a rectal exam. 1705 Labs reviewed. CBC shows decreased hemoglobin 11.5, decreased hematocrit 38. Previous hemoglobin on 06/06/23 was 13.0, hematocrit was 42. CMP shows slightly elevated chloride 108, BUN slightly elevated 20, creatinine 1, GFR 79. Coags show slightly elevated PT 17.3, normal INR, APTT slightly elevated 36. Hemoccult positive for blood. Possible internal hemorrhoid palpated. This is likely the source of patient's bleeding due to recent constipation with hard stools. Results discussed with patient. Patient instructed to follow-up with Dr. Patterson. Instructed to continue to use stool softener as needed for hard stool and constipation. Instructed to obtain perforation H [id number] as needed for rectal pain. Patient already held his Eliquis this morning, will instruct him to hold his evening dose as well. Patient is stable for discharge at this time. Discharge instructions and return precautions provided. Initial ECG Impression Date: Aug 17, 2023 Initial ECG Impression Time: 16:11 Initial ECG Rate: 70 Initial ECG Rhythm: Normal Sinus (Ventricular paced) Initial ECG Impression: Nonspecific Changes Initial ECG Comparisson: No Previous ECG Available Departure Impression Primary Impression: Hematochezia Disposition: HOME, SELF-CARE Condition: Stable Departure-Patient Inst. Decision time for Depature: 17:05 Referrals: BARBARA MCCLURE DO (PCP/Family) Primary Care Physician Patient Instructions: Bloody Stools, Adult (DC) Add. Discharge Instructions: Call Dr. Patterson on Sunday to schedule a follow-up appointment. Do not take your dose of Eliquis tonight. You may resume it tomorrow. Continue taking your Colace as needed for constipation and hard stools. You may use Preparation H [id number] as needed for rectal pain. Return for significant bleeding, passing out, severe dizziness, chest pain, shortness of air, or any other new, concerning, or worsening symptoms. All discharge instructions reviewed with patient and/or family. Voiced understanding. VICKI CORTEZ APRN Aug 17, 2023 15:44
[2023-08-17 15:46] LABS: BASOPHILS # (AUTO) 0.1 10^3/uL (0.0-0.1); BASOPHILS % (AUTO) 1 % (0-10); EOSINOPHILS # (AUTO) 0.1 10^3/uL (0.0-0.3); EOSINOPHILS % (AUTO) 1 % (0-10); HEMATOCRIT 38 % (40-54); HEMOGLOBIN 11.5 g/dL (13.3-17.7); LYMPHOCYTES # (AUTO) 1.8 10^3/uL (1.0-4.0); LYMPHOCYTES % (AUTO) 17 % (12-44); MEAN CORPUSCULAR HEMOGLOBIN 27 pg (25-34); MEAN CORPUSCULAR HGB CONC 31 g/dL (32-36); MEAN CORPUSCULAR VOLUME 88 fL (80-99); MEAN PLATELET VOLUME 9.3 fL (9.0-12.2); MONOCYTES # (AUTO) 0.8 10^3/uL (0.0-1.0); MONOCYTES % (AUTO) 7 % (0-12); NEUTROPHILS # (AUTO) 7.6 10^3/uL (1.8-7.8); NEUTROPHILS % (AUTO) 74 % (42-75); PLATELET COUNT 273 10^3/uL (130-400); WHITE BLOOD COUNT 10.4 10^3/uL (4.3-11.0)
[2023-08-17 15:54] LABS: ALBUMIN 3.7 GM/DL (3.2-4.5)
[2023-08-17 15:55] LABS: CHLORIDE 108 MMOL/L (98-107); POTASSIUM 4.7 MMOL/L (3.6-5.0); SODIUM 141 MMOL/L (135-145)
[2023-08-17 15:56] LABS: CALCIUM 9.2 MG/DL (8.5-10.1)
[2023-08-17 15:57] LABS: GLUCOSE 129 MG/DL (70-105); TOTAL PROTEIN 6.6 GM/DL (6.4-8.2)
[2023-08-17 15:58] LABS: CARBON DIOXIDE 23 MMOL/L (21-32)
[2023-08-17 15:59] LABS: BILIRUBIN,TOTAL 0.4 MG/DL (0.1-1.0)
[2023-08-17 16:00] LABS: ALKALINE PHOSPHATASE 86 U/L (40-136)
[2023-08-17 16:01] LABS: GFR ESTIMATED 79
[2023-08-17 16:02] LABS: BUN/CREATININE RATIO 20
[2023-08-17 16:03] LABS: ALANINE AMINOTRANSFERASE < 6 U/L (0-55)
[2023-08-17 16:09] LABS: INR 1.4 (0.8-1.4); PROTHROMBIN TIME PATIENT 17.3 SEC (12.2-14.7)
[2023-08-17 17:18] VITALS: BP 106/72
== END 2023-08-17 17:28 | disposition home or self-care (01) ==
LOC: EDUNIT# 15:10 → ER 15:11
DX: K92.1 Melena (principal); E66.9 Obesity, unspecified; Z87.891 Personal history of nicotine dependence; Z68.35 Body mass index [BMI] 35.0-35.9, adult; Z79.01 Long term (current) use of anticoagulants
CPT/HCPCS: 36415; 80053; 82274; 85025; 85610; 85730; 93005

== ENCOUNTER 2023-08-27 14:01 | Emergency (ER) | payer OTHER ==
[~2023-08-27] VITALS: Ht 177.8 cm; Wt 113.3 kg
--- NOTE | 2023-08-27 14:44 | ED Respiratory ---
General Chief Complaint: Respiratory Problems Stated Complaint: SOB | CHEST CONGESTION Nursing Triage Note: PT TO TRIAGE BY WC WITH C/O COUGH WITH PHLEM, SOB, WEAKNESS THAT HAS WORSENED OVER THE LAST 4 DAYS Source: patient Exam Limitations: no limitations (FRANCISCO J CASTANON) History of Present Illness Date Seen by Provider: Aug 27, 2023 Time Seen by Provider: 14:42 Initial Comments Patient is a 72-year-old male who presents to ED with chest pain, cough, shortness of breath and weakness over the past 4 days. Patient reports shortness of breath and chest pain with exertion or when he coughs. Reports phlegm production. Associated shortness of breath with exertion. Has noted increased bilateral lower leg swelling over the past 4 to 5 days. He does report a history of coronary artery disease, CHF, COPD. Does use his albuterol inhaler every 4 hours. Reports some generalized weakness fatigue. Denies of fever, sore throat, ear pain, vomiting or diarrhea or urinary symptoms. Not currently on diuretic. Follows Dr. Mcguire dag coater. Patient denies of any recent travels or surgeries. Currently on Eliquis. Does have a pacemaker/defibrillator. Denies of any specific chest pain or shortness of breath at this time. Vital signs stable (FRANCISCO J CASTANON) Allergies and Home Medications Allergies Coded Allergies: ceftriaxone (Verified Allergy, Unknown, 07/25/23) codeine (Verified Allergy, Unknown, 07/25/23) Patient Home Medication List Home Medication List Reviewed: Yes (FRANCISCO J CASTANON) Acetaminophen (Tylenol Arthritis) 650 Mg Tablet.er, 650 MG PO Q8H PRN for PAIN- MILD (1-4), (Reported) Entered as Reported by: KARIE KRAMER on 06/04/23 1340 Albuterol Sulfate (Ventolin Hfa) 90 Mcg Hfa.aer.ad, 2 PUFF PO Q8H PRN for SHORTNESS OF BREATH, (Reported) Entered as Reported by: KARIE KRAMER on 06/04/23 1342 Alogliptin Benzoate (Alogliptin) 12.5 Mg Tablet, 12.5 MG PO DAILY, (Reported) Entered as Reported by: Kristen Daniel on 07/25/23 1146 Amoxicillin/Potassium Clav (Amox Tr-K Clv 875-125 mg Tab) 875 Mg-125 Mg Tablet, 1 EACH PO BID Prescribed by: KYE SHAFER on 08/27/23 1622 Apixaban (Eliquis) 5 Mg Tablet, 5 MG PO BID Prescribed by: LUZ MARIA PASCUAL on 06/06/23 1015 Atorvastatin Calcium (Atorvastatin Calcium) 80 Mg Tablet, 80 MG PO DAILY, (Reported) Entered as Reported by: Kristen Daniel on 07/25/23 1146 Azithromycin (Azithromycin) 250 Mg Tablet, 250 MG PO UD Prescribed by: KYE SHAFER on 08/27/23 1622 Carbidopa/Levodopa (Sinemet 25-100 mg Tablet) 25 Mg-100 Mg Tablet, 2 EACH PO QID, (Reported) Entered as Reported by: NARAYAN LIN on 06/02/23 0909 Celecoxib (Celebrex) 200 Mg Capsule, 200 MG PO DAILY, (Reported) Entered as Reported by: KARIE KRAMER on 06/04/23 1327 Cetirizine HCl (Cetirizine HCl) 10 Mg Tablet, 10 MG PO DAILY, (Reported) Entered as Reported by: KARIE KRAMER on 06/04/23 1338 Docusate Sodium (Colace) 100 Mg Capsule, 100 MG PO 1200, (Reported) Entered as Reported by: NARAYAN LIN on 06/02/23 0908 Entacapone (Entacapone) 200 Mg Tablet, 200 MG PO QID, (Reported) Entered as Reported by: KARIE KRAMER on 06/04/23 1326 Finasteride (Finasteride) 5 Mg Tablet, 5 MG PO DAILY Prescribed by: LUZ MARIA PASCUAL on 06/06/23 1015 Fludrocortisone Acetate (Fludrocortisone Acetate) 0.1 Mg Tab, 0.1 MG PO DAILY, (Reported) Entered as Reported by: KARIE KRAMER on 06/04/23 1337 Fluticasone Propion/Salmeterol (Wixela 250-50 Inhub) 250 Mcg-50 Mcg/Dose Blst.w.dev, 1 EACH IH BID, (Reported) Entered as Reported by: KARIE RKAMER on 06/04/23 1341 Fluticasone Propionate (Fluticasone Propionate) 50 Mcg/Actuation [place].susp, 1 SPRAY NS DAILY PRN for CONGESTION, (Reported) Entered as Reported by: KARIE KRAMER on 06/04/23 1340 Furosemide (Lasix) 20 Mg Tablet, 20 MG PO DAILY Prescribed by: KYE SHAFER on 08/27/23 1622 Gabapentin (Neurontin) 300 Mg Capsule, 600 MG PO QID, (Reported) Entered as Reported by: KARIE KRAMER on 06/04/23 1325 Losartan Potassium (Losartan Potassium) 50 Mg Tablet, 50 MG PO DAILY, (Reported) Entered as Reported by: KARIE KRAMER on 06/04/23 1336 Magnesium Oxide (Mag-Oxide) 200 Mg Magnesium Tablet, 420 MG PO 1700, (Reported) Entered as Reported by: NARAYAN LIN on 06/02/23 0908 Metformin HCl (Metformin HCl ER) 750 Mg Tab.er.24h, 750 MG PO DAILY, (Reported) Entered as Reported by: Kristen Daniel on 07/25/23 1146 Pantoprazole Sodium (Pantoprazole Sodium) 40 Mg Tablet.dr, 40 MG PO DAILY, (Reported) Entered as Reported by: KARIE KRAMER on 06/04/23 1325 Potassium Chloride (Potassium Chloride) 20 Meq Tablet.er, 20 MEQ PO DAILY, (Reported) Entered as Reported by: KARIE KRAMER on 06/04/23 1338 Sertraline HCl (Sertraline HCl) 50 Mg Tablet, 50 MG PO DAILY, (Reported) Entered as Reported by: KARIE KRAMER on 06/04/23 1326 Review of Systems Review of Systems Constitutional: No chills, No diaphoresis, No fever, No malaise EENTM: No blurred vision Respiratory: cough, dyspnea on exertion, short of breath Cardiovascular: chest pain, edema Gastrointestinal: No abdominal pain, No diarrhea, No nausea, No vomiting Genitourinary: No decreased output, No discharge Musculoskeletal: No back pain, No joint pain Skin: No change in color, No change in hair/nails (FRANCISCO J CASTANON) All Other Systems Reviewed Negative Unless Noted: Yes (FRANCISCO J CASTANON) Past Peisxuj-Kdocsc-Pzokce Hx Patient Social History Tobacco Use?: No Substance use?: No Alcohol Use?: No Pt feels they are or have been: No (FRANCISCO J CASTANON) Seasonal Allergies Seasonal Allergies: Yes (FRANCISCO J CASTANON) Past Medical History Surgery/Hospitalization HX: a fib, pacemaker,htn,parkinsons Surgeries: Yes (SP CATH, BACK, RECTAL FISTULA) Cardiac, Coronary Stent, Defibrillator, Orthopedic, Pacemaker Respiratory: Yes COPD Currently Using BIPAP: Yes Cardiac: Yes ([place] WITH STENT X 1; PACEMAKER/DEFIBRILLATOR; CHF) Atrial Fibrillation, Cardiomyopathy, Chronic Edema/Swelling, Coronary Artery Disease, Heart Attack, High Cholesterol, Hypertension Neurological: Yes Neuropathy, Parkinson's Disease Sexually Transmitted Disease: No HIV/AIDS: No Genitourinary: Yes (SP CATHETER) Prostate Problems, UTI-Chronic Gastrointestinal: Yes Gastroesophageal Reflux, Liver Disease/Jaundice, Chronic Constipation Musculoskeletal: Yes (S/P BACK SURGERY;LEFT DISTAL FIBULA FX 2021--NO SURGERY) Arthritis, Chronic Back Pain, Fractures Endocrine: Yes (OBESITY) Diabetes, Non-Insulin dep HEENT: No Loss of Vision: Bilateral Hearing Impairment: Denies Cancer: No Psychosocial: Yes Anxiety, Depression Integumentary: No Blood Disorders: No Adverse Reaction/Blood Tranf: No (FRANCISCO J CASTANON) Family Medical History No Pertinent Family Hx SOCIAL HISTORY: -SMOKED TEEN, QUIT AGE 17 -ETOH USE TEEN, QUIT AGE 17 -DENIES DRUG USE PAST SURGICAL HISTORY: -BACK SURGERY X 1 -CARDIAC CATH WITH STENT X 1 -PACEMAKER/DEFIBRILLATOR (FRANCISCO J CASTANON) Physical Exam Vital Signs - First Documented 08/27/23 14:15 Temp 36.8 Pulse 72 Resp 22 B/P (MAP) 163/93 (116) Pulse Ox 96 O2 Delivery Room Air (LEILANI REY MD) Capillary Refill : (FRANCISCO J CASTANON) Height: '" Weight: lbs. oz. kg; 35.00 BMI Method: General Appearance: WD/WN, no apparent distress Eyes: Bilateral Eye Normal Inspection, Bilateral Eye PERRL, Bilateral Eye Abnormal EOM HEENT: PERRL/EOMI, normal ENT inspection, TMs normal, pharynx normal Neck: non-tender, full range of motion, supple Respiratory: chest non-tender, no respiratory distress, no accessory muscle use, decreased breath sounds, other Cardiovascular: regular rate, rhythm, no edema, no gallop, no JVD Gastrointestinal: normal bowel sounds, non tender, soft, no organomegaly Extremities: normal range of motion, non-tender, normal inspection, no pedal edema Neurologic/Psychiatric: geospatial extractor analysis II-XII nml as tested, no motor/sensory deficits, alert, normal mood/affect, oriented x 3 Skin: warm/dry (FRANCISCO J CASTANON) Progress/Results/Core Measures Suspected Sepsis SIRS Temperature: Pulse: 72 Respiratory Rate: 22 Laboratory Tests 08/27/23 14:26: White Blood Count 10.3 Blood Pressure 163 /93 Mean: 116 Laboratory Tests 08/27/23 14:26: Creatinine 0.99, Platelet Count 326, Total Bilirubin 0.5 (FRANCISCO J CASTANON) Results/Orders Lab Results Laboratory Tests Test 08/27/23 14:23 08/27/23 14:26 Range/Units Influenza Type A (RT-PCR) Not Detected Not Detecte Influenza Type B (RT-PCR) Not Detected Not Detecte SARS-CoV-2 RNA (RT-PCR) Not Detected Not Detecte White Blood Count 10.3 4.3-11.0 10^3/uL Red Blood Count 3.78 L 4.30-5.52 10^6/uL Hemoglobin 9.6 L 13.3-17.7 g/dL Hematocrit 33 L 40-54 % Mean Corpuscular Volume 88 80-99 fL Mean Corpuscular Hemoglobin 25 25-34 pg Mean Corpuscular Hemoglobin Concent 29 L 32-36 g/dL Red Cell Distribution Width 15.3 H 10.0-14.5 % Platelet Count 326 130-400 10^3/uL Mean Platelet Volume 9.1 9.0-12.2 fL Immature Granulocyte % (Auto) 0 % Neutrophils (%) (Auto) 78 H 42-75 % Lymphocytes (%) (Auto) 13 12-44 % Monocytes (%) (Auto) 7 0-12 % Eosinophils (%) (Auto) 1 0-10 % Basophils (%) (Auto) 1 0-10 % Neutrophils # (Auto) 8.0 H 1.8-7.8 10^3/uL Lymphocytes # (Auto) 1.3 1.0-4.0 10^3/uL Monocytes # (Auto) 0.7 0.0-1.0 10^3/uL Eosinophils # (Auto) 0.1 0.0-0.3 10^3/uL Basophils # (Auto) 0.1 0.0-0.1 10^3/uL Immature Granulocyte # (Auto) 0.0 0.0-0.1 10^3/uL Sodium Level 137 135-145 MMOL/L Potassium Level 4.6 3.6-5.0 MMOL/L Chloride Level 107 98-107 MMOL/L Carbon Dioxide Level 19 L 21-32 MMOL/L Anion Gap 11 5-14 MMOL/L Blood Urea Nitrogen 14 7-18 MG/DL Creatinine 0.99 0.60-1.30 MG/DL Estimat Glomerular Filtration Rate 80 BUN/Creatinine Ratio 14 Glucose Level 129 H 70-105 MG/DL Calcium Level 9.2 8.5-10.1 MG/DL Corrected Calcium 9.4 8.5-10.1 MG/DL Magnesium Level 2.6 H 1.6-2.4 MG/DL Total Bilirubin 0.5 0.1-1.0 MG/DL Aspartate Amino Transf (AST/SGOT) 17 5-34 U/L Alanine Aminotransferase (ALT/SGPT) < 6 0-55 U/L Alkaline Phosphatase 93 40-136 U/L Troponin I < 0.028 <0.028 NG/ML B-Type Natriuretic Peptide 187.9 H <100.0 PG/ML Total Protein 7.2 6.4-8.2 GM/DL Albumin 3.8 3.2-4.5 GM/DL Lipase 32 8-78 U/L (LEILANI REY MD) Medications Given in ED Current Medications Medications Dose Ordered Sig/Esdras Route Start Time Stop Time Status Last Admin Dose Admin Albuterol/ Ipratropium 3 ml ONCE ONCE INH 08/27/23 16:00 08/27/23 16:02 DC 08/27/23 16:07 3 ML Furosemide 20 mg ONCE ONCE IVP 08/27/23 16:30 08/27/23 16:31 DC 08/27/23 16:28 20 MG Methylprednisolone Sodium Succinate 125 mg ONCE ONCE IVP 08/27/23 16:30 08/27/23 16:31 DC 08/27/23 16:28 125 MG (LEILANI REY MD) Vital Signs/I&O 08/27/23 08/27/2323 14:15 16:07 16:40 Temp 36.8 Pulse 72 71 Resp 22 B/P (MAP) 163/93 (116) 142/80 Pulse Ox 96 95 94 O2 Delivery Room Air Room Air (LEILANI REY MD) Vital Signs/I&O Capillary Refill : (FARNCISCO J CASTANON) Blood Pressure Mean: 116 ECG Comment Ventricular paced rhythm 70 bpm, QRS duration 157 MS, QTc 447 (FRANCISCO J CASTANON) Departure Impression Primary Impression: Pneumonia Disposition: 01 HOME, SELF-CARE Condition: Stable Departure-Patient Inst. Decision time for Depature: 16:21 (FRANCISCO J CASTANON) Referrals: BARBARA MCCLURE DO (PCP/Family) Primary Care Physician Patient Instructions: Pneumonia in adults Add. Discharge Instructions: If any worsening symptoms such as difficulty breathing, shortness of breath, severe chest pain to return back to ED. follow-up your PCP in 3 to 4 days for reevaluation All discharge instructions reviewed with patient and/or family. Voiced understanding. Scripts Furosemide (Lasix) 20 Mg Tablet 20 MG PO DAILY for 4 Days, #4 TAB Prov: FRANCISCO J CASTANON 08/27/23 Azithromycin (Azithromycin) 250 Mg Tablet 250 MG PO UD, #6 TAB TAKE 2 TABLETS ON DAY ONE THEN TAKE 1 TABLET DAILY FOR FOUR MORE DAYS Prov: FRANCISCO J CASTANON 08/27/23 Amoxicillin/Potassium Clav (Amox Tr-K Clv 875-125 mg Tab) 875 Mg-125 Mg Tablet 1 EACH PO BID for 7 Days, #14 TAB Prov: FRANCISCO J CASTANON 08/27/23 ATTENDING PHYSICIAN NOTE: I was physically present as attending physician in the emergency department during the care of this patient, but I was not directly involved in the decision making or delivery of care for this patient. (LEILANI REY MD) FRANCISCO J CASTANON Aug 27, 2023 14:44 LEILANI REY MD Aug 27, 2023 17:05
[2023-08-27 14:54] LABS: ALBUMIN 3.8 GM/DL (3.2-4.5); BASOPHILS # (AUTO) 0.1 10^3/uL (0.0-0.1); BASOPHILS % (AUTO) 1 % (0-10); CHLORIDE 107 MMOL/L (98-107); EOSINOPHILS # (AUTO) 0.1 10^3/uL (0.0-0.3); EOSINOPHILS % (AUTO) 1 % (0-10); HEMATOCRIT 33 % (40-54); HEMOGLOBIN 9.6 g/dL (13.3-17.7); LYMPHOCYTES # (AUTO) 1.3 10^3/uL (1.0-4.0); LYMPHOCYTES % (AUTO) 13 % (12-44); MEAN CORPUSCULAR HEMOGLOBIN 25 pg (25-34); MEAN CORPUSCULAR HGB CONC 29 g/dL (32-36); MEAN CORPUSCULAR VOLUME 88 fL (80-99); MEAN PLATELET VOLUME 9.1 fL (9.0-12.2); MONOCYTES # (AUTO) 0.7 10^3/uL (0.0-1.0); MONOCYTES % (AUTO) 7 % (0-12); NEUTROPHILS % (AUTO) 78 % (42-75); PLATELET COUNT 326 10^3/uL (130-400); POTASSIUM 4.6 MMOL/L (3.6-5.0); SODIUM 137 MMOL/L (135-145); WHITE BLOOD COUNT 10.3 10^3/uL (4.3-11.0)
[2023-08-27 14:55] LABS: CALCIUM 9.2 MG/DL (8.5-10.1)
[2023-08-27 14:56] LABS: GLUCOSE 129 MG/DL (70-105)
[2023-08-27 14:57] LABS: CARBON DIOXIDE 19 MMOL/L (21-32); TOTAL PROTEIN 7.2 GM/DL (6.4-8.2)
[2023-08-27 14:58] LABS: BILIRUBIN,TOTAL 0.5 MG/DL (0.1-1.0)
[2023-08-27 15:00] LABS: ALKALINE PHOSPHATASE 93 U/L (40-136); CREATININE SERUM 0.99 MG/DL (0.60-1.30); GFR ESTIMATED 80
[2023-08-27 15:01] LABS: BUN/CREATININE RATIO 14
--- NOTE | 2023-08-27 15:02 | Diagnostic Imaging Report ---
INDICATION: Chest pain. Comparison is made with prior exam of 12/24/2022. FINDINGS: There is cardiomegaly. There is some central venous congestion. There is a patchy right basilar infiltrate. No pleural effusion or pneumothorax. Mediastinum unremarkable. Pacemaker overlies left hemithorax. IMPRESSION: Patchy right basilar infiltrate. Cardiomegaly and mild central pulmonary venous congestion. Dictated by: Dictated on workstation # [id number]
[2023-08-27 15:03] LABS: ALANINE AMINOTRANSFERASE < 6 U/L (0-55); MAGNESIUM 2.6 MG/DL (1.6-2.4)
[2023-08-27 15:04] LABS: LIPASE 32 U/L (8-78)
[2023-08-27] MEDS ORDERED: RT-Ipratropium/Albuterol NEB 3 ML VIAL INH ONE (16:00)
[2023-08-27] MEDS ORDERED: AZIT250T12 PO (16:22)
[2023-08-27] MEDS ORDERED: FURO-125 PO (16:22)
[2023-08-27] MEDS ORDERED: AMOX1TAB12 PO (16:22)
[2023-08-27] MEDS ORDERED: methylPREDNISolone INJ 125 MG VIAL IVP ONE (16:30)
[2023-08-27] MEDS ORDERED: FUROSEMIDE INJECTION 40 MG/4 ML VIAL IVP ONE (16:30)
[2023-08-27 16:40] VITALS: BP 142/80
== END 2023-08-27 16:47 | disposition home or self-care (01) ==
LOC: EDUNIT# 14:01 → ER 14:03
DX: J18.9 Pneumonia, unspecified organism (principal); J44.9 Chronic obstructive pulmonary disease, unspecified; I48.91 Unspecified atrial fibrillation; E66.9 Obesity, unspecified; Z79.01 Long term (current) use of anticoagulants; Z79.899 Other long term (current) drug therapy; Z86.79 Personal history of other diseases of the circulatory system; Z87.891 Personal history of nicotine dependence; Z68.35 Body mass index [BMI] 35.0-35.9, adult; Z20.822 Contact with and (suspected) exposure to COVID-19; Z88.1 Allergy status to other antibiotic agents
CPT/HCPCS: 36415; 71045; 80053; 83690; 83735; 83880; 84484; 85025; 87636; 93005; 93041; 94640